=== PATIENT | female | born 1940 | race Caucasian/White ===

== ENCOUNTER 2017-02-12 14:51 | Outpatient (CLI) | payer MEDICARE, OTHER ==
[2017-02-12 19:32] LABS: BASOPHILS # (AUTO) 0.1 10^3/uL (0.0-0.1); BASOPHILS % (AUTO) 1.1 %; EOSINOPHILS # (AUTO) 0.2 10^3/uL (0.0-0.7); EOSINOPHILS % (AUTO) 3.3 %; HCT - HEMATOCRIT 39.4 % (37.0-47.0); HGB - HEMOGLOBIN 13.2 g/dL (12.0-16.0); LYMPHOCYTES # (AUTO) 1.7 10^3/uL (1.5-3.5); LYMPHOCYTES % (AUTO) 28.1 %; MEAN CORPUSCULAR HGB CONC 33.6 g/dL (32.0-36.0); MEAN CORPUSCULAR VOLUME 89.4 fL (81.0-99.0); MEAN PLATELET VOLUME 9.2 fL (7.9-10.8); MONOCYTES # (AUTO) 0.5 10^3/uL (0.0-1.0); MONOCYTES % (AUTO) 7.5 %; NEUTROPHILS # (AUTO) 3.7 10^3/uL (1.5-6.6); NUCLEATED RED BLOOD CELLS AUTO 0.1 /100WBC; RED BLOOD COUNT 4.41 10^6/uL (4.20-5.40); RED CELL DISTRIBUTION WIDTH 13.8 % (12.0-15.0); UNCORRECTED WHITE BLOOD COUNT 6.1 x10^3/uL; WHITE BLOOD COUNT 6.1 x10^3/uL (4.8-10.8)
[2017-02-12 19:43] LABS: ALBUMIN/GLOBULIN RATIO 1.7 (1.0-2.2); BUN - BLOOD UREA NITROGEN 19 mg/dL (6-20); CALCIUM 8.7 mg/dL (8.5-10.3); CARBON DIOXIDE - CO2 26 mmol/L (21-32); CHLORIDE 107 mmol/L (101-111); CREATININE 0.8 mg/dL (0.4-1.0); GFR - MDRD 70 (>89); GLUCOSE 146 mg/dL (70-100); LIPASE 25 U/L (22-51); POTASSIUM 4.3 mmol/L (3.5-5.0); SODIUM 140 mmol/L (135-145); TOTAL PROTEIN 6.4 g/dL (6.7-8.2)
== END 2017-02-12 14:52 ==
LOC: LAB.WCP 14:51
PROVIDERS: ATTEND Family Medicine
DX: R10.9 Unspecified abdominal pain (principal)
CPT/HCPCS: 36415; 80053; 83690; 85025; 86140; 87086

== ENCOUNTER 2017-02-19 09:42 | Outpatient (CLI) | payer MEDICARE, OTHER | END 2017-02-19 09:43 | disposition home or self-care (01) | LOC: SC 09:42 | PROVIDERS: ATTEND Internal Medicine Pulmonary Disease | DX: R53.83 Other fatigue (principal); G47.10 Hypersomnia, unspecified | CPT/HCPCS: 99203; G0463; 99212 ==

== ENCOUNTER 2017-03-07 22:29 | Outpatient (CLI) | payer MEDICARE, OTHER | END 2017-03-07 22:30 | disposition home or self-care (01) | LOC: SC 22:29 | PROVIDERS: ATTEND Internal Medicine Pulmonary Disease | DX: G47.61 Periodic limb movement disorder (principal); R53.83 Other fatigue; G47.10 Hypersomnia, unspecified | CPT/HCPCS: 95810 ==

== ENCOUNTER 2017-04-11 13:37 | Outpatient (CLI) | payer MEDICARE, OTHER | END 2017-04-11 13:38 | disposition home or self-care (01) | LOC: SC 13:37 | PROVIDERS: ATTEND Nurse Practitioner Family | DX: G47.61 Periodic limb movement disorder (principal) | CPT/HCPCS: 99214; G0463; 99212 ==

== ENCOUNTER 2017-05-15 08:31 | Outpatient (CLI) | payer MEDICARE, OTHER ==
--- NOTE | 2017-05-16 12:32 | Mammography Report ---
DIGITAL SCREENING MAMMOGRAM: 05/15/2017 CLINICAL INDICATION: A 76-year-old with family history of breast cancer for screening. COMPARISON: 05/2016, 04/2014, 04/2013, 04/2012, 03/2011, 01/2010 TECHNIQUE: Routine CC and MLO projections were obtained of the breasts. FINDINGS: The breasts demonstrate scattered fibroglandular densities bilaterally. Coarse, typically benign calcifications are present. No suspicious masses, clustered microcalcifications, or regions of architectural distortion are identified. IMPRESSION: BENIGN FINDINGS. RECOMMENDATION: Routine annual screening unless otherwise clinically indicated. BIRADS CATEGORY 2 - BENIGN FINDINGS. STANDARD QUALIFYING STATEMENTS 1. This examination was reviewed with the aid of Computer-Aided Detection (CAD). 2. A negative or benign imaging report should not delay biopsy if clinically suspicious findings are present. Consider surgical consultation if warranted. More than 5% of cancers are not identified by i maging. 3. Dense breasts may obscure an underlying neoplasm. JOB #: [id number] EXT JOB #:[id number]
== END 2017-05-15 08:32 | disposition home or self-care (01) ==
LOC: DI 08:31
PROVIDERS: ATTEND Family Medicine
DX: Z12.31 Encounter for screening mammogram for malignant neoplasm of breast (principal); Z80.3 Family history of malignant neoplasm of breast
CPT/HCPCS: 77067

== ENCOUNTER 2017-05-15 08:32 | Outpatient (CLI) | payer MEDICARE, OTHER ==
--- NOTE | 2017-05-16 11:01 | DEXA Report ---
DEXA SCAN: 05/15/2017 CLINICAL INDICATION: Osteoporosis. TECHNIQUE: Dual energy x-ray absorptiometry (DXA) was performed on a [employer] system. Regions measured are the AP spine, femoral neck, and, if needed, forearm. COMPARISON: None. In accordance with the International Society for Clinical Densitometry (ISCD) guidelines, data from previous exams may be reanalyzed using current recommendations and techniques. This is done to allow a more accurate basis for comparison with the current study. FINDINGS: The data for the lumbar spine is as follows: REGION BMD (g/cm/cm) T-SCORE Z-SCORE L1 0.810 -2.7 -1.3 L2 1.039 -1.3 0.0 L3 1.182 -0.2 1.2 L4 1.246 0.4 1.7 TOTAL 1.071 -0.9 0.4 NOTE: All evaluable vertebrae are used for classification. The data for the hip is as follows: REGION BMD (g/cm/cm) T-SCORE Z-SCORE Neck 0.663 -2.7 -1.0 TOTAL 0.849 -1.3 0.2 NOTE: The femoral neck or total proximal femur, whichever is lowest, is used for classification. IMPRESSION: THE WHO CLASSIFICATION BASED ON THE INTERNATIONAL REFERENCE STANDARD IS OSTEOPOROSIS (REFERENCE LEFT FEMORAL NECK). THE FRACTURE RISK IS HIGH. RECOMMENDATION: Patients with diagnosis of osteoporosis or osteopenia should have regular bone mineral density assessment. For those eligible for Medicare, routine testing is allowed once every 2 years. Testing frequency can be increased for patients who have rapidly progressing disease or for those who are receiving medical therapy to restore bone mass. COMMENT: World Health Organization (WHO) definitions for osteoporosis and osteopenia: NORMAL BMD: T-score at -1.0 or higher, fracture risk is low. OSTEOPENIA BMD: T-score between -1.0 and -2.5, fracture risk is increased. OSTEOPOROSIS BMD: T-score at -2.5 or lower, fracture risk high. National Osteoporosis Foundation recommends: 1. Obtain adequate dietary calcium (at least 1200 mg per day) and vitamin D (400 -800 international units per day). 2. Participate, as appropriate, in regular weightbearing and muscle- strengthening exercise. 3. Avoid tobacco use and reduce alcohol and caffeine intake. 4. For more detailed information see the website at www.NOF.org. MTDD
== END 2017-05-15 08:33 | disposition home or self-care (01) ==
LOC: DI 08:32
PROVIDERS: ATTEND Family Medicine
DX: M81.0 Age-related osteoporosis without current pathological fracture (principal)
CPT/HCPCS: 77080

== ENCOUNTER 2017-08-29 11:34 | Outpatient (CLI) | payer MEDICARE, OTHER ==
--- NOTE | 2017-08-30 13:44 | XRAY Report ---
DATE OF SERVICE: 08/29/2017 LEFT HIP AND PELVIS: 08/29/2017 CLINICAL INDICATION: Arthritis. Frontal standing view of the hips and pelvis and frogleg lateral view of the left hip are compared to previous films of 02/23/2016. Mild osteoarthritis is stable. There is no evidence of interval fracture. Hood gical clips at the pubic symphysis are stable. IMPRESSION: Stable mild osteoarthritis. TD: 08/29/2017 18:31
== END 2017-08-29 11:35 | disposition home or self-care (01) ==
LOC: DI 11:34
PROVIDERS: ATTEND Family Medicine
DX: M16.12 Unilateral primary osteoarthritis, left hip (principal)

== ENCOUNTER 2017-09-06 16:22 | Outpatient (CLI) | payer MEDICARE, OTHER ==
--- NOTE | 2017-09-06 18:11 | MRI Preliminary Report ---
Exam: MRI SHOULDER LT W/O IMPRESSION: 1. Mild supraspinatus tendinopathy with shallow partial-thickness intrasubstance and articular surfac e tear and shallow bursal surface fraying. 2. Minimal infraspinatus tendinopathy. 3. Mild subscapularis tendinopathy with small partial-thickness undersurface tear. 4. Degenerative maceration of the labrum. 5. Moderate biceps tendinopathy and possible intrasubstance tearing of the intrajugular portion. 6. Severe glenohumeral degenerative change.. [facility] MUSCULOSKELETAL RADIOLOGY SECTION SITE ID: [id number]
--- NOTE | 2017-09-09 15:47 | MRI Report ---
EXAM: LEFT SHOULDER MRI WITHOUT CONTRAST EXAM DATE: 09/06/2017 04:21 PM. CLINICAL HISTORY: Shoulder pain, left. COMPARISON: Radiographs 05/28/2017. TECHNIQUE: Multiplanar, multisequence T1-weighted and fluid-sensitive sequences of the shoulder witho ut contrast. Other: None. FINDINGS: Evaluation mildly limited by patient motion and artifact. Acromioclavicular Region: The acromion is type II. Mild degenerative change at the joint with minimal joint effusion. The coracoacromial and coracoclavicular ligaments are intact. Minimal subacromial/crow bdeltoid bursal fluid. Glenohumeral Region: Minimal superior subluxation of the humeral head. Small to moderate joint effusi on with lobulated fluid extending into the subcoracoid region. Diffuse full-thickness cartilage loss and mild mechanical wear at the articular surfaces. The glenohumeral ligaments and joint capsule are unremarkable. Bone Marrow: No fracture or bone lesion. Reactive cysts at the greater tuberosity. Mild to moderate r eactive edema at the glenohumeral joint where there are small to moderate osteophytes. Labrum: Degenerative maceration throughout. Small partial-thickness undersurface tear deep to the bic eps tendon anchor. Musculature/Rotator Cuff: Mild supraspinatus tendinopathy. Small shallow partial-thickness intrasubst ance and articular surface tear at the anterior fibers involving a region measuring 0.9 cm in AP and transverse dimensions. This involves up to 50% of the tendon thickness. Shallow bursal surface frayin g over the anterior fibers at the myotendinous junction. Minimal infraspinatus tendinopathy with a small partial-thickness intrasubstance tear at the posterio r insertion. Teres minor tendon is intact. Mild subscapularis tendinopathy with a shallow partial-thickness undersurface tear at the superior fi bers. No edema or fatty atrophy. Biceps Tendon: Moderate thickening at the interarticular portion with fluid sensitive hyperintense si gnal in the substance. Other: The subcutaneous tissues are unremarkable. IMPRESSION: 1. Mild supraspinatus tendinopathy with a shallow partial-thickness intrasubstance and articular surf kun tear and shallow bursal surface fraying. 2. Minimal infraspinatus tendinopathy. 3. Mild subscapularis tendinopathy with a small partial-thickness undersurface tear. 4. Degenerative maceration of the labrum. 5. Moderate biceps tendinopathy and possible intrasubstance tearing of the intraarticular portion. 6. Severe glenohumeral degenerative change. [facility] MUSCULOSKELET[facility] RADIOLOGY SECTION Referring Provider Line: [phone] SITE ID: [id number]
== END 2017-09-06 16:23 | disposition home or self-care (01) ==
LOC: DI 16:22
PROVIDERS: ATTEND Family Medicine
DX: M75.102 Unspecified rotator cuff tear or rupture of left shoulder, not specified as traumatic (principal); M19.012 Primary osteoarthritis, left shoulder; M67.88 Other specified disorders of synovium and tendon, other site

== ENCOUNTER 2017-10-16 08:00 | Outpatient (CLI) | payer MEDICARE, OTHER | END 2017-10-16 08:01 | disposition home or self-care (01) | LOC: LAB.WCP 08:00 | PROVIDERS: ATTEND Family Medicine | DX: N39.0 Urinary tract infection, site not specified (principal) | CPT/HCPCS: 87086 ==

== ENCOUNTER 2018-04-26 16:19 | Outpatient (CLI) | payer MEDICARE, OTHER ==
--- NOTE | 2018-04-26 21:12 | Ultrasound Report ---
Reason: LEG PAIN Procedure Date: 04/26/2018 Accession Number: [id number] / [id number] Procedure: US - Duplex Ext Veins Right CPT Code: FULL RESULT: EXAM: RIGHT LOWER EXTREMITY VENOUS ULTRASOUND EXAM DATE: 04/26/2018 05:03 PM. CLINICAL HISTORY: Leg pain COMPARISON: None. TECHNIQUE: Real-time sonographic vascular imaging was performed by the senior java web developer through the lower extremity utilizing both color-flow and Doppler spectral analysis. Multiple assisted sales representative static images were saved for review. FINDINGS: Common Femoral Vein (CFV): Normal. CFV-GSV Junction: Normal. Profunda Femoral Vein (PFV): Normal. Femoral Vein (FV) Prox: Normal. Femoral Vein (FV) Mid: Normal. Femoral Vein (FV) Dist: Normal. Popliteal Vein: Normal. Posterior Tibial Veins: Normal. Peroneal Veins: Normal. Contralateral Side CFV: Normal. IMPRESSION: No evidence for deep venous thrombosis. [facility]
== END 2018-04-26 16:20 | disposition home or self-care (01) ==
LOC: DI 16:19
PROVIDERS: ATTEND Family Medicine
DX: M79.604 Pain in right leg (principal)

== ENCOUNTER 2018-06-03 10:19 | Outpatient (CLI) | payer MEDICARE, OTHER ==
--- NOTE | 2018-06-04 14:32 | Mammography Report ---
Reason: SCREEING MAMMO Procedure Date: 06/03/2018 Accession Number: [id number] / [id number] Procedure: MGN - Screening Mammo Dig Bilat CPT Code: FULL RESULT: EXAM: Screening Mammo Dig Bilat DATE: 06/03/2018 10:38 AM CLINICAL HISTORY: 77-year-old female with history of remote breast biopsy with benign pathology results and family history of breast cancer in the daughter at age 48 and an aunt at age 65. TECHNIQUE: Bilateral CC and MLO views were obtained. A left exaggerated view was also obtained. COMPARISON: 05/15/2017, January 2016, 04/15/2014, 04/02/2013. FINDINGS: The breasts demonstrate scattered fibroglandular densities bilaterally. Typically benign coarse calcifications are seen bilaterally. No suspicious masses, clustered microcalcifications, or regions of architectural distortion are identified. IMPRESSION: Benign findings RECOMMENDATION: Routine annual screening unless otherwise clinically indicated. BIRADS CATEGORY 2: Benign findings STANDARD QUALIFYING STATEMENTS: 1. This examination was reviewed with the aid of Computer-Aided Detection (CAD). 2. A negative or benign imaging report should not delay biopsy if clinically suspicious findings are present. Consider surgical consultation if warrented. More than 5% of cancers are not identified by imaging. 3. Dense breasts may obscure an underlying neoplasm. 4. This examination was reviewed without the aid of 3D breast imaging (tomosynthesis).
== END 2018-06-03 10:20 | disposition home or self-care (01) ==
LOC: DI.N 10:19
DX: Z12.31 Encounter for screening mammogram for malignant neoplasm of breast (principal); Z80.3 Family history of malignant neoplasm of breast
CPT/HCPCS: 77067

== ENCOUNTER 2018-08-07 08:24 | Outpatient (CLI) | payer MEDICARE, OTHER | END 2018-08-07 08:25 | disposition home or self-care (01) | LOC: DI 08:24 | PROVIDERS: ATTEND Family Medicine | DX: R06.02 Shortness of breath (principal); I35.8 Other nonrheumatic aortic valve disorders | CPT/HCPCS: 93306 ==

== ENCOUNTER 2018-10-20 08:00 | Outpatient (CLI) | payer MEDICARE, OTHER | END 2018-10-20 23:59 | disposition home or self-care (01) | LOC: LAB.WCP 08:00 | PROVIDERS: ATTEND Family Medicine | DX: R53.83 Other fatigue (principal) | CPT/HCPCS: 87275; 87276 ==

== ENCOUNTER 2018-10-27 12:30 | Outpatient (CLI) | payer MEDICARE, OTHER | END 2018-10-27 12:31 | disposition critical access hospital (66) | LOC: EMS 12:30 | PROVIDERS: ATTEND Surgery | DX: R50.9 Fever, unspecified (principal); R53.1 Weakness | CPT/HCPCS: A0425; A0429 ==

== ENCOUNTER 2018-10-27 12:52 | Emergency (ER) | payer MEDICARE, OTHER ==
--- NOTE | 2018-10-27 13:40 | ED Physician Documentation ---
PD SRIRAM HEENT - Stated complaint Stated Complaint: Fever - Chief complaint Chief Complaint: General - History obtained from History obtained from: Patient - History of Present Illness Timing - onset: How many days ago (has felt worse the past 2-3 days with increased cough, wheezing, nausea and vomiting. Had had malaise and URI symptoms for about 2 weeks prior, onset after flying to visit friend in [place].) Timing - duration: Days, Weeks (2 weeks duration of general malaise, aches, some headache - onset day after getting shingles booster vaccine) Timing - details: Gradual onset, Still present Location: Sinuses Associated symptoms: Fever, Swollen nodes. No: Headache Similar symptoms before: Has not had sx before Recently seen: Not recently seen Review of Systems Constitutional: reports: Fever, Chills, Myalgias Nose: reports: Congestion. denies: Rhinorrhea / runny nose Throat: reports: Sore throat Respiratory: reports: Dyspnea, Cough, Wheezing GI: reports: Nausea. denies: Abdominal Pain, Vomiting, Diarrhea : denies: Dysuria, Frequency Skin: denies: Rash, Lesions Neurologic: reports: Confused, Altered mental status, Headache PD PAST MEDICAL HISTORY - Past Medical History Past Medical History: Yes Cardiovascular: None Respiratory: None Endocrine/Autoimmune: None Musculoskeletal: Osteoarthritis - Past Surgical History Ortho: Knee replacement /FLOUR BROKER: Hysterectomy - Present Medications Home Medications: Ambulatory Orders Medication Instructions Recorded Confirmed Albuterol Sulf [Ventolin Hfa 1 - 2 puffs INH Q4HR PRN #1 inhaler 10/27/18 Inhaler] Benzonatate [Tessalon Perle] 100 mg PO TID PRN #30 capsule 10/27/18 10/29/18 Cephalexin [Keflex] 500 mg PO TID #21 capsule 10/27/18 10/29/18 Dexamethasone [Decadron] 4 mg PO DAILY #5 tablet 10/27/18 10/29/18 Ondansetron Odt [Zofran] 4 mg TL Q6H PRN #10 tablet 10/27/18 10/29/18 Estrogen,Pily/Me-Testosterone 0.5 tab PO Q48H 10/29/18 10/29/18 [Covaryx H.s. Tablet] Levothyroxine [Synthroid] 50 mcg PO QDAC 10/29/18 10/29/18 - Allergies Allergies/Adverse Reactions: Allergies Allergy/AdvReac Type Severity Reaction Status Date / Time No Known Drug Allergies Allergy Verified 10/29/18 10:02 - Social History Does the pt smoke?: No Smoking Status: Never smoker PD ED PE NORMAL - Vitals Vital signs reviewed: Yes - General General: Alert and oriented X 3, Well developed/nourished - HEENT HEENT: Ears normal, Pharynx benign. No: Moist mucous membranes - Neck Neck: Supple, no meningeal sign, No adenopathy - Cardiac Cardiac: RRR, No murmur - Respiratory Respiratory: No: Clear bilaterally (some congested sounds right mid lung field. Has diffuse wheezing and moderate tidal volume both sides. ) - Abdomen Abdomen: Soft, Non tender, Non distended. No: Normal bowel sounds (diminished) - Female Female : Deferred - Rectal Rectal: Deferred - Back Back: No CVA TTP - Extremities Extremities: No tenderness to palpate, Normal ROM s pain, No edema, No calf tenderness / cord - Neuro Neuro: Alert and oriented X 3, No motor deficit, Normal speech Results - Vitals Vitals: Oxygen O2 Source Room air - Labs Labs: Microbiology 10/27/18 14:25 Urine Culture - Preliminary Urine,Clean Catch Laboratory Tests 10/27/18 10/27/18 10/27/18 13:30 13:30 13:30 WBC 5.0 RBC 4.64 Hgb 13.8 Hct 40.8 MCV 88.0 MCH 29.9 MCHC 33.9 RDW 13.6 Plt Count 170 MPV 8.1 Neut # (Auto) 3.1 Lymph # (Auto) 1.0 L [place] # (Auto) 0.8 Eos # (Auto) 0.0 Baso # (Auto) 0.0 Absolute Nucleated RBC 0.00 Nucleated RBC % 0.0 Sodium 135 Potassium 4.0 Chloride 100 L Carbon Dioxide 26 Anion Gap 9.0 BUN 16 Creatinine 1.0 Estimated GFR (MDRD) 54 L Glucose 100 Calcium 8.6 Magnesium 2.0 Total Bilirubin 1.3 H AST 25 ALT 21 Alkaline Phosphatase 65 Total Protein 6.9 Albumin 3.9 Globulin 3.0 Albumin/Globulin Ratio 1.3 Lipase 31 Urine Color Urine Clarity Urine pH Ur Specific [place] Urine Protein Urine Glucose (UA) Urine Ketones Urine Occult Blood Urine Nitrite Urine Bilirubin Urine Urobilinogen Ur Leukocyte Esterase Urine RBC Urine WBC Ur Squamous Epith Cells Urine Bacteria Urine Mucus Ur Microscopic Review Urine Culture Comments Influenza A (Rapid) Influenza B (Rapid) 10/27/18 10/27/18 14:25 14:40 WBC RBC Hgb Hct MCV MCH MCHC RDW Plt Count MPV Neut # (Auto) Lymph # (Auto) [place] # (Auto) Eos # (Auto) Baso # (Auto) Absolute Nucleated RBC Nucleated RBC % Sodium Potassium Chloride Carbon Dioxide Anion Gap BUN Creatinine Estimated GFR (MDRD) Glucose Calcium Magnesium Total Bilirubin AST ALT Alkaline Phosphatase Total Protein Albumin Globulin Albumin/Globulin Ratio Lipase Urine Color DARK YELLOW Urine Clarity CLEAR Urine pH 5.5 Ur Specific [place] >=1.030 H Urine Protein 30 H Urine Glucose (UA) NEGATIVE Urine Ketones TRACE Urine Occult Blood LARGE H Urine Nitrite NEGATIVE Urine Bilirubin NEGATIVE Urine Urobilinogen 0.2 (NORMAL) Ur Leukocyte Esterase TRACE H Urine RBC 6-10 H Urine WBC 6-10 H Ur Squamous Epith Cells RARE Squamous Urine Bacteria Rare Urine Mucus Few Strands Ur Microscopic Review INDICATED Urine Culture Comments INDICATED Influenza A (Rapid) Negative Influenza B (Rapid) Negative PD MEDICAL DECISION MAKING - ED course Complexity details: reviewed results (I think incidental UTI, though could be adding to her feeling of unwellness. ), re-evaluated patient (improved breathing and cough post meds and nebs. Given IV fluid and antiemetics with improvement. ), considered differential (She relates symptoms starting after getting shingles vaccine, but she had traveled to [place] by plane, drove to [place] and was there for few days, so had opportunity for viral illness/etc in addition to side effects of vaccine. She had URI type symptoms and then has worse symptoms the past 2-3 days, so either secondary infection or another viral illness. Does seem likely dehydrated. Mild headache but no nuchal stiffness, so I don't feel she has meningitic symptoms. ), d/w patient, d/w family Departure - Departure Disposition: 01 Home, Self Care Clinical Impression: Dehydration Upper respiratory infection Qualifiers: URI type: unspecified URI Qualified Code(s): J06.9 - Acute upper respiratory infection, unspecified UTI (urinary tract infection) Qualifiers: Urinary tract infection type: acute cystitis Hematuria presence: without hematuria Qualified Code(s): N30.00 - Acute cystitis without hematuria Condition: Stable Record reviewed to determine appropriate education?: Yes Instructions: ED Upper Resp Infec Abx Tx, ED UTI Cystitis Female Follow-Up: Adri Mendoza DO [Primary Care Provider] - Prescriptions: Albuterol Sulf [Ventolin Hfa Inhaler] 1 - 2 puffs INH Q4HR PRN #1 inhaler PRN Reason: Shortness Of Air/Wheezing Benzonatate [Tessalon Perle] 100 mg PO TID PRN #30 capsule PRN Reason: Cough Cephalexin [Keflex] 500 mg PO TID #21 capsule Dexamethasone [Decadron] 4 mg PO DAILY #5 tablet Ondansetron Odt [Zofran] 4 mg TL Q6H PRN #10 tablet PRN Reason: Nausea / Vomiting Comments: On testing you do have a urinary tract infection. I think this is unrelated to your cough and congestion of course. It might be augmenting your general feeling of illness and nausea. However much of your symptoms sound flulike with the congestion cough, nausea and vomiting. Will have you take ondansetron if needed for nausea. Decadron anti-inflammatory to help with nausea and also with cough. Cough medicine if needed (Tessalon). Albuterol inhaler 4 times daily for cough and wheezing. Take the cephalexin antibiotic 3 times a day for the bladder infection and can help if this is some element bacterial bronchitis. Recheck if not improved over the next couple of days. Discharge Date/Time: 10/27/18 18:02
[2018-10-27 13:46] LABS: BASOPHILS % (AUTO) 0.6 %; EOSINOPHILS % (AUTO) 0.1 %; HGB - HEMOGLOBIN 13.8 g/dL (12.0-16.0); LYMPHOCYTES % (AUTO) 21.1 %; MEAN CORPUSCULAR HEMOGLOBIN 29.9 pg (27.0-31.0); MEAN CORPUSCULAR HGB CONC 33.9 g/dL (32.0-36.0); MEAN PLATELET VOLUME 8.1 fL (7.9-10.8); MONOCYTES # (AUTO) 0.8 10^3/uL (0.0-1.0); MONOCYTES % (AUTO) 15.3 %; NEUTROPHILS # (AUTO) 3.1 10^3/uL (1.5-6.6); NEUTROPHILS % (AUTO) 62.9 %; PLT - PLATELET COUNT 170 10^3/uL (130-450); RED BLOOD COUNT 4.64 10^6/uL (4.20-5.40); RED CELL DISTRIBUTION WIDTH 13.6 % (12.0-15.0)
[2018-10-27 14:02] LABS: ALBUMIN 3.9 g/dL (3.2-5.5); ALBUMIN/GLOBULIN RATIO 1.3 (1.0-2.2); BILIRUBIN,TOTAL 1.3 mg/dL (0.2-1.0); CALCIUM 8.6 mg/dL (8.5-10.3); TOTAL PROTEIN 6.9 g/dL (6.7-8.2)
[2018-10-27] MEDS ORDERED: ONDANSETRON 4 MG/2 ML VIAL IVP STA (14:16)
[2018-10-27] MEDS ORDERED: ALBUTEROL NEB 2.5 MG/3 ML INH STA (14:16)
[2018-10-27] MEDS ORDERED: SODIUM CHLORIDE 0.9% 1,000 ML IV ONE ×2 (14:16→14:18)
[2018-10-27] MEDS ORDERED: FAMOTIDINE 20 MG/2 ML VIAL IVP STA (14:17)
[2018-10-27] MEDS ORDERED: MECLIZINE 12.5 MG TABLET PO STA (14:17)
[2018-10-27 14:44] LABS: BILIRUBIN,URINE NEGATIVE (NEGATIVE); GLUCOSE, URINE (UA) NEGATIVE (NEGATIVE); KETONES,URINE (UA) TRACE mg/dL (NEGATIVE); LEUKOCYTE ESTERASE, URINE TRACE (NEGATIVE); NITRITE,URINE NEGATIVE (NEGATIVE); OCCULT BLOOD,URINE LARGE (NEGATIVE); PH,URINE 5.5 PH (5.0-7.5); PROTEIN,URINE 30 mg/dL (NEGATIVE); UROBILINOGEN,URINE 0.2 (NORMAL) E.U./dL (NORMAL)
[2018-10-27 14:45] LABS: CLARITY,URINE CLEAR (CLEAR)
[2018-10-27 14:59] LABS: BACTERIA,URINE Rare /HPF (None Seen); MUCUS,URINE Few Strands; SQUAMOUS EPITHELIAL CELL,UR RARE Squamous (<= Few)
--- NOTE | 2018-10-27 15:27 | XRAY Report ---
Reason: cough and dyspnea Procedure Date: 10/27/2018 Accession Number: [id number] / [id number] Procedure: XR - Chest 2 View X-Ray CPT Code: 63712 FULL RESULT: EXAM: CHEST RADIOGRAPHY EXAM DATE: 10/27/2018 02:55 PM. CLINICAL HISTORY: Cough and dyspnea. COMPARISON: CHEST 2 VIEW PA/LAT 07/16/2018 9:00 AM. TECHNIQUE: 2 views. FINDINGS: Lungs/Pleura: Mild diffuse interstitial prominence similar to previous exam. No definite acute infiltrate, consolidation, effusion, or pneumothorax. Mediastinum: Heart and mediastinal contours are unremarkable. Upper lobe vessels not distended. Other: Scoliosis, degenerative changes. IMPRESSION: Chronic findings. No acute disease. [facility]
[2018-10-27] MEDS ORDERED: cefTRIAXone 1 GM VIAL IVP STA (15:40)
[2018-10-27] MEDS ORDERED: IPRATROPIUM/ALBUTEROL 3 ML NEB INH STA (16:02)
[2018-10-27] MEDS ORDERED: BENZONATATE 100 MG CAPSULE PO STA (16:03)
[2018-10-27 16:19] VITALS: BP 135/96
== END 2018-10-27 18:02 | disposition home or self-care (01) ==
LOC: ED 12:52
DX: J06.9 Acute upper respiratory infection, unspecified (principal); E86.0 Dehydration; R11.2 Nausea with vomiting, unspecified; N30.00 Acute cystitis without hematuria
CPT/HCPCS: 36415; 71046; 80053; 81001; 83690; 83735; 85025; 87077; 87086; 87181; 87275; 87276; 94640; 96361; 96374; 96375; 99283; 99284; A9270; 81003

== ENCOUNTER 2018-10-29 09:27 | Outpatient (CLI) | payer MEDICARE, OTHER | END 2018-10-29 09:28 | disposition critical access hospital (66) | LOC: EMS 09:27 | PROVIDERS: ATTEND Surgery | DX: R55 Syncope and collapse (principal) | CPT/HCPCS: A0425; A0427 ==

== ENCOUNTER 2018-10-29 09:49 | Inpatient (IN) | payer MEDICARE, OTHER ==
[2018-10-29] MEDS ORDERED: SODIUM CHLORIDE 0.9% 1,000 ML IV ONE ×2 (10:32→13:10)
[2018-10-29 10:57] LABS: BASOPHILS % (AUTO) 0.8 %; EOSINOPHILS % (AUTO) 0.2 %; HGB - HEMOGLOBIN 13.6 g/dL (12.0-16.0); LYMPHOCYTES # (AUTO) 1.2 10^3/uL (1.5-3.5); LYMPHOCYTES % (AUTO) 25.8 %; MEAN CORPUSCULAR HEMOGLOBIN 29.8 pg (27.0-31.0); MEAN CORPUSCULAR VOLUME 87.8 fL (81.0-99.0); MEAN PLATELET VOLUME 8.4 fL (7.9-10.8); MONOCYTES # (AUTO) 0.5 10^3/uL (0.0-1.0); MONOCYTES % (AUTO) 10.8 %; NEUTROPHILS % (AUTO) 62.4 %; PLT - PLATELET COUNT 173 10^3/uL (130-450); RED BLOOD COUNT 4.56 10^6/uL (4.20-5.40); RED CELL DISTRIBUTION WIDTH 13.7 % (12.0-15.0); WHITE BLOOD COUNT 4.8 x10^3/uL (4.8-10.8)
--- NOTE | 2018-10-29 11:03 | ED Physician Documentation ---
PD HPI SYNCOPE - Stated complaint Stated Complaint: NEAR SYNCOPE - Chief complaint Chief Complaint: General - History obtained from History obtained from: Patient - History of Present Illness Witnessed: Witnessed Timing - onset: Today Duration: Seconds Preceding symptoms: Vision changes, Light headed Associated symptoms: No: Seizure, Incontinant of urine, Incontinant of stool, Headache Contributing factors: Other (recent illness) Treatment SPA CONSULTANT: Fluids Similar symptoms before: Has not had sx before Recently seen: Clinic, Emergency Dept - Additional information Additional information: 78-year-old female reports that 2 weeks ago she got a shingles vaccine and felt feverish following that and she had some swelling in her arm that has now resolved and she is developed some dizziness following this. She is going to see her primary care doctor about this and was going in for a follow-up on her dizziness today when she had a syncopal episode in a chair. She was seen here in the emergency department 2 days ago placed on some antibiotic for a urinary tract infection. Review of Systems Constitutional: reports: Fever, Chills, Myalgias, Fatigue Eyes: denies: Decreased vision Ears: denies: Ear pain Nose: reports: Congestion. denies: Rhinorrhea / runny nose Throat: denies: Sore throat Cardiac: denies: Chest pain / pressure, Palpitations Respiratory: reports: Cough. denies: Dyspnea GI: denies: Abdominal Pain, Nausea, Vomiting : denies: Dysuria, Frequency Skin: denies: Rash Musculoskeletal: denies: Neck pain, Back pain, Extremity pain Neurologic: reports: Syncope. denies: Generalized weakness, Focal weakness, Numbness, Seizure, Confused, Altered mental status PD PAST MEDICAL HISTORY - Past Medical History Cardiovascular: None Respiratory: None Endocrine/Autoimmune: None Musculoskeletal: Osteoarthritis - Past Surgical History Ortho: Knee replacement /ENGINEERING INTERN: Hysterectomy - Present Medications Home Medications: Ambulatory Orders Medication Instructions Recorded Confirmed Albuterol Sulf [Ventolin Hfa 1 - 2 puffs INH Q4HR PRN #1 inhaler 10/27/18 Inhaler] Benzonatate [Tessalon Perle] 100 mg PO TID PRN #30 capsule 10/27/18 Cephalexin [Keflex] 500 mg PO TID #21 capsule 10/27/18 Dexamethasone [Decadron] 4 mg PO DAILY #5 tablet 10/27/18 Ondansetron Odt [Zofran] 4 mg TL Q6H PRN #10 tablet 10/27/18 Estrogen,Pily/Me-Testosterone 1 each PO DAILY 10/29/18 [Covaryx H.s. Tablet] Levothyroxine [Synthroid] 50 mcg PO QDAC 10/29/18 Oxybutynin Chloride 5 mg PO DAILY 10/29/18 - Allergies Allergies/Adverse Reactions: Allergies Allergy/AdvReac Type Severity Reaction Status Date / Time No Known Drug Allergies Allergy Verified 10/29/18 10:02 - Social History Does the pt smoke?: No Smoking Status: Never smoker PD ED PE NORMAL - Vitals Vital signs reviewed: Yes (normal ) - General General: Alert and oriented X 3, No acute distress, Well developed/nourished - HEENT HEENT: Atraumatic, PERRL, EOMI, Ears normal, Other (dry mucous membranes. 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, No motor deficit, No sensory deficit, Normal speech Eye Opening: Spontaneous Motor: Obeys Commands Verbal: Oriented GCS Score: 15 - Psych Psych: Normal mood, Normal affect Results - Vitals Vitals: Vital Signs - 24 hr 10/29/18 10/29/18 10/29/18 09:52 12:07 14:00 Temperature 36.1 C L Heart Rate 68 59 L 57 L Respiratory 19 18 15 Rate Blood Pressure 126/59 L 144/78 H 145/69 H O2 Saturation 96 99 97 Oxygen O2 Source Room air - EKG (time done) 0958 Rate: Rate (enter#) (56) Rhythm: NSR QRS: LVH Compare to prior EKG: Old EKG unavailable Computer interpretation: Agree with computer - Labs Labs: Laboratory Tests 10/29/18 10/29/18 10/29/18 10:50 10:50 10:50 WBC 4.8 RBC 4.56 Hgb 13.6 Hct 40.0 MCV 87.8 MCH 29.8 MCHC 34.0 RDW 13.7 Plt Count 173 MPV 8.4 Neut # (Auto) 3.0 Lymph # (Auto) 1.2 L [place] # (Auto) 0.5 Eos # (Auto) 0.0 Baso # (Auto) 0.0 Absolute Nucleated RBC 0.00 Nucleated RBC % 0.0 Sodium 135 Potassium 4.0 Chloride 102 Carbon Dioxide 24 Anion Gap 9.0 BUN 20 Creatinine 0.9 Estimated GFR (MDRD) 61 L Glucose 98 Lactic Acid Calcium 8.4 L Total Bilirubin 1.0 AST 35 ALT 26 Alkaline Phosphatase 60 Troponin I < 0.04 Total Protein 6.7 Albumin 3.7 Globulin 3.0 Albumin/Globulin Ratio 1.2 Lipase 40 Urine Color Urine Clarity Urine pH Ur Specific [place] Urine Protein Urine Glucose (UA) Urine Ketones Urine Occult Blood Urine Nitrite Urine Bilirubin Urine Urobilinogen Ur Leukocyte Esterase Urine RBC Urine WBC Ur Squamous Epith Cells Urine Bacteria Ur Microscopic Review Urine Culture Comments 10/29/18 10/29/18 10:50 12:05 WBC RBC Hgb Hct MCV MCH MCHC RDW Plt Count MPV Neut # (Auto) Lymph # (Auto) [place] # (Auto) Eos # (Auto) Baso # (Auto) Absolute Nucleated RBC Nucleated RBC % Sodium Potassium Chloride Carbon Dioxide Anion Gap BUN Creatinine Estimated GFR (MDRD) Glucose Lactic Acid 0.7 Calcium Total Bilirubin AST ALT Alkaline Phosphatase Troponin I Total Protein Albumin Globulin Albumin/Globulin Ratio Lipase Urine Color YELLOW Urine Clarity CLEAR Urine pH 6.0 Ur Specific [place] 1.015 Urine Protein NEGATIVE Urine Glucose (UA) NEGATIVE Urine Ketones NEGATIVE Urine Occult Blood MODERATE H Urine Nitrite NEGATIVE Urine Bilirubin NEGATIVE Urine Urobilinogen 0.2 (NORMAL) Ur Leukocyte Esterase NEGATIVE Urine RBC 0-5 Urine WBC 0-3 Ur Squamous Epith Cells RARE Squamous Urine Bacteria None Seen Ur Microscopic Review INDICATED Urine Culture Comments NOT INDICATED - Rads (name of study) Chest 1 veiw Radiology: Prelim report reviewed (Impression: Left lower lung opacities, new finding.), EMP read indepedently, See rad report Procedures - IVC sono (time) 1100 Bedside IVC sono: IVC measures (cm) (0.97), IVC collapsed c insp (cm) (complete), Dehydration (est 2 liter deficit) 1330 Bedside IVC sono: IVC measures (cm) (1.20), IVC collapsed c insp (cm) (complete), Dehydration (est 1 liter deficit) PD MEDICAL DECISION MAKING - ED course Complexity details: reviewed old records, reviewed results, re-evaluated p atdanilo, considered differential, d/w patient ED course: 78-year-old female with a recent URI has developed lightheadedness and is found to be dehydrated. She was hydrated in the emergency department 2 days ago and despite this ought follow-up with her primary care doctor she had a syncopal episode. They found her blood pressure difficult to find and had a difficult time getting IV started. She arrived to the emergency department here with a 2 L deficit and after a liter of fluid she registers a liter deficit. She is administered a second liter of saline. On review of the patient's medications she was on an inhaled steroid for some time that was helping she stopped this and I am concerned about the possibility of [place]'s we have given her another dose of dexamethasone. She was given dexamethasone on her prior visit and she did not fill her prescription for the dexamethasone that was prescribed. She did take her antibiotic. We did repeat her chest x-ray and there is a new finding of a left lower lobe infiltrate. Departure - Departure Disposition: [facility] DC/Xfer Clinical Impression: Dehydration Pneumonia Qualifiers: Pneumonia type: due to unspecified organism Laterality: left Lung location: lower lobe of lung Qualified Code(s): J18.1 - Lobar pneumonia, unspecified organism
[2018-10-29 11:13] LABS: ALBUMIN 3.7 g/dL (3.2-5.5); ALBUMIN/GLOBULIN RATIO 1.2 (1.0-2.2); CALCIUM 8.4 mg/dL (8.5-10.3); CREATININE 0.9 mg/dL (0.4-1.0); TOTAL PROTEIN 6.7 g/dL (6.7-8.2)
[2018-10-29 12:19] LABS: BILIRUBIN,URINE NEGATIVE (NEGATIVE); CLARITY,URINE CLEAR (CLEAR); GLUCOSE, URINE (UA) NEGATIVE (NEGATIVE); KETONES,URINE (UA) NEGATIVE (NEGATIVE); LEUKOCYTE ESTERASE, URINE NEGATIVE (NEGATIVE); NITRITE,URINE NEGATIVE (NEGATIVE); OCCULT BLOOD,URINE MODERATE (NEGATIVE); PROTEIN,URINE NEGATIVE (NEGATIVE); UROBILINOGEN,URINE 0.2 (NORMAL) E.U./dL (NORMAL)
[2018-10-29 12:29] LABS: BACTERIA,URINE None Seen /HPF (None Seen); RBC,URINE 0-5 /HPF (0-5); SQUAMOUS EPITHELIAL CELL,UR RARE Squamous (<= Few)
[2018-10-29] MEDS ORDERED: DEXAMETHASONE 10 MG/ML VIAL IVP STA (13:37)
--- NOTE | 2018-10-29 14:22 | XRAY Report ---
Reason: cough syncope Procedure Date: 10/29/2018 Accession Number: [id number] / [id number] Procedure: XR - Chest 1 View X-Ray CPT Code: 08963 FULL RESULT: EXAM: CHEST RADIOGRAPHY EXAM DATE: 10/29/2018 02:01 PM. CLINICAL HISTORY: Cough, syncope. COMPARISON: Chest 2 views 10/27/2018 2:55 PM. TECHNIQUE: 1 view. FINDINGS: Lungs/Pleura: Interval decrease in lung volumes with new opacities at the left lung base essentially obscuring the cardiomediastinal silhouette. No sizable pleural effusion or pneumothorax. Mediastinum: The silhouette is partially obscured with no significant interval change in visualized portions. The aortic arch is calcified. Other: None. IMPRESSION: Left lower lung opacities, new finding. RADIA
[2018-10-29] MEDS ORDERED: cefTRIAXone 1 GM in SODIUM CHLORIDE 0.9% MINIBAG 100 ML IV STA (14:48)
[2018-10-29] MEDS ORDERED: IPRATROPIUM/ALBUTEROL 3 ML NEB INH STA (14:48)
[2018-10-29] MEDS ORDERED: PROCHLORPERAZINE 10 MG/2 ML VIAL IVP PRN (16:20)
[2018-10-29] MEDS ORDERED: ACETAMINOPHEN 325 MG TABLET PO PRN (16:20)
[2018-10-29] MEDS ORDERED: SODIUM CHLORIDE FLUSH 0.9% 10 ML SYRINGE IVP PRN (16:20)
[2018-10-29] MEDS ORDERED: BENZONATATE 100 MG CAPSULE PO PRN (16:24)
[2018-10-29] MEDS ORDERED: ALBUTEROL NEB 2.5 MG/3 ML INH PRN (16:29)
[2018-10-29] MEDS ORDERED: IPRATROPIUM/ALBUTEROL 3 ML NEB INH SCH (17:00)
[2018-10-29 17:04] LABS: INR 1.2 (0.8-1.2); PT - PROTHROMBIN TIME 13.9 secs (9.9-12.6)
[2018-10-29] MEDS: D5NS W/20 MEQ KCL 1,000 ML IV SCH (17:30)
[2018-10-29] MEDS: SACCHAROMYCES BOULARDII 250 MG CAPSULE PO SCH (17:31)
[2018-10-29] MEDS: SODIUM CHLORIDE FLUSH 0.9% 10 ML SYRINGE IVP SCH (17:34)
[2018-10-29] MEDS: AZITHROMYCIN INJ 500 MG in SODIUM CHLORIDE 0.9% 250 ML IV SCH (17:37)
--- NOTE | 2018-10-29 18:26 | HISTORY & PHYSICAL EXAMINATION ---
DATE OF SERVICE: 10/29/2018 Physician: July Ruth MD HISTORY OF PRESENT ILLNESS: This is a 78-year-old white female with a history of hypothyroidism on Levothyroxine replacement, as well as on estrogen with testosterone and takes oxybutynin. The patient developed fever of 102 and shaking chills about 3 days ago, a cough and came to the emergency room here. She was felt to be dehydrated, received IV fluids, felt to have bronchitis and was sent home with Tessalon Perles, antibiotics, Decadron and an inhaler and also felt to have a UTI. She stated that she did not feel any better; however, she only took the antibiotics, did not start using the steroid. Today, she felt weak, but drove herself to her PCP's office because she had a followup appointment. While she was waiting in the waiting room, she had a syncopal episode in a chair. She could not remember the details of that event. She does know that an ambulance was called. From that moment on, she was awake and remembers things. The reported vital signs at the scene near the time of the event was blood pressure of 94/56 with a heart rate of 46. In the ambulance, she had a first blood pressure of 120/70 with a pulse of 50 and was afebrile. She had ER evaluation showing that she is dehydrated and a chest x-ray now shows a left lower lobe infiltrate. She started to get IV fluids and her blood pressure has improved to 140. She has had a cough with minimal sputum production. She denies any chest pain or dyspnea on exertion. There have been no palpitations or other episodes of syncope. ALLERGIES: NONE. MEDICATIONS 1. Estrogen/testosterone compound p.o. every other day. 2. Keflex 500 mg t.i.d. 3. Tessalon Perles 100 mg t.i.d. p.r.n. cough. 4. Ventolin inhaler p.r.n. wheezing. 5. Synthroid 50 mcg daily. 6. Zofran p.r.n. 7. Decadron, which she did not take, which was to be 4 mg daily. FAMILY HISTORY: No inherited diseases. SOCIAL HISTORY: She is a retired Ph.D. in nursing education and worked for the [employer] and then the [employer], and she still does part-time substitute teaching. She is a nonsmoker, drinks no alcohol, no illicit drug use. REVIEW OF SYSTEMS: A comprehensive review of systems was performed and the pertinent positives are listed, the rest are negative. PHYSICAL EXAMINATION GENERAL: Elderly white female. She is in no distress, supine in bed. VITAL SIGNS: Blood pressure 140/50, heart rate 65, sinus rhythm, afebrile, room air saturation 95%. HEENT: Reveals dry oral mucosa. Good dental hygiene. NECK: Without JVD in a 30-degree upright angle. CHEST: Diminished breath sounds, but no wheezes or rales. HEART: Sounds are distant. BREASTS: Large. ABDOMEN. Obese, nontender, soft. Normal bowel sounds. EXTREMITIES: No clubbing, cyanosis or edema. NEUROLOGIC: Intact. LABORATORIES: Normal electrolytes. BUN is 20, creatinine 0.9, magnesium 2.2. Normal liver tests. Troponin not detectable. Lipase normal. Lactic acid normal at 0.7. White blood count is 4.8, hemoglobin 13.6, platelet count 173. No INR was done. Urinalysis has moderate occult blood and few white blood cells are seen, but no bacteria. DIAGNOSTIC DATA: Chest x-ray: Left lower lobe infiltrate. EKG: Sinus bradycardia and LVH voltage. There is no old EKG available for comparison. She did have an Echo done here approximately 2 months ago as an outpatient to evaluate "shortness of breath" and this showed LVEF of 65-70% with grade 2 diastolic dysfunction, normal RV size and function and PA pressure could not be measured. IMPRESSION/DIAGNOSES 1. Syncope. 2. Dehydration, which was documented in the emergency room by inferior vena cava ultrasound and she has a prerenal ratio of BUN/creatinine of 20. 3. Community-acquired pneumonia, this has blossomed since the chest x-ray that was done with her first ER visit was 2 days ago. 4. Urinary tract infection, which was to be treated with the same Keflex that her upper respiratory infection was dosed for. 5. Hypothyroidism, on medication. PLAN: Admit the patient to a medical/surgical bed on telemetry. Continue with IV fluids at an aggressive rate. Cycle troponins to rule out an CA as the cause of syncope. Obtain sputum culture if she makes it. Blood cultures were already done in the ER. Begin treatment for community-acquired pneumonia using IV ceftriaxone and IV Zithromax, this will be eventually transitioned to p.o. antibiotics, and adjust IV antibiotics for any bacteria identified based on sensitivities. Ceftriaxone should also cover a urinary tract infection. Check orthostatic vital signs starting tomorrow to assess for adequate rehydration. Monitor for tachy or fred dysrhythmias on telemetry. It is concerning is her heart rate was only 46 when she was hypotensive, this suggests either a vasovagal event or that she has poor chronotropy to compensate for a hypotensive event, suggesting she might need a pacemaker. Continue with her Synthroid and check a TSH to assure adequate dose. Monitor her electrolytes and CBC daily. Continue with her oxybutynin as needed. DEEP VENOUS THROMBOSIS PROPHYLAXIS: Lovenox. CODE STATUS: FULL CODE. ATTESTATION: The patient is expected to be discharged or transferred to another facility within 96 hours. cc: Adri Mendoza DO TD: 10/29/2018 18:03 MTDD
[2018-10-29] MEDS ORDERED: OXYBUTYNIN 5MG TABLET PO PRN (18:36)
[2018-10-29] MEDS: FAMOTIDINE 20 MG TABLET PO SCH (21:04)
[2018-10-29] MEDS: methylPREDNISolone SUCCINATE 40 MG/ML VIAL IVP SCH (21:05)
[2018-10-29] MEDS: IPRATROPIUM/ALBUTEROL 3 ML NEB INH SCH (21:16)
[2018-10-30] MEDS: D5NS W/20 MEQ KCL 1,000 ML IV SCH ×4 (02:27→18:19)
[2018-10-30 04:56] LABS: BASOPHILS % (AUTO) 0.3 %; HGB - HEMOGLOBIN 12.8 g/dL (12.0-16.0); LYMPHOCYTES % (AUTO) 39.4 %; MEAN CORPUSCULAR HGB CONC 32.8 g/dL (32.0-36.0); MEAN CORPUSCULAR VOLUME 88.3 fL (81.0-99.0); MEAN PLATELET VOLUME 8.7 fL (7.9-10.8); MONOCYTES % (AUTO) 3.5 %; NEUTROPHILS % (AUTO) 56.8 %; PLT - PLATELET COUNT 159 10^3/uL (130-450); RED BLOOD COUNT 4.42 10^6/uL (4.20-5.40); RED CELL DISTRIBUTION WIDTH 13.4 % (12.0-15.0)
[2018-10-30 05:03] LABS: CALCIUM 7.8 mg/dL (8.5-10.3); CREATININE 0.8 mg/dL (0.4-1.0); MAGNESIUM 2.2 mg/dL (1.7-2.8)
[2018-10-30 05:06] LABS: WHITE BLOOD COUNT 1.8 x10^3/uL (4.8-10.8)
[2018-10-30 05:07] LABS: ABNORMAL LYMPHS % (MANUAL) 0 %
[2018-10-30 05:39] LABS: BAND NEUTROPHILS % (MANUAL) 6 %; DIFFERENTIAL COMMENT MANUAL DIFFERENTIAL; LYMPHOCYTES # (MANUAL) 0.6 10^3/uL (1.5-3.5); LYMPHOCYTES % (MANUAL) 34 %; NEUTROPHILS # (MANUAL) 1.2 10^3/uL (1.5-6.6); NEUTROPHILS % (MANUAL) 58 %; PLATELET ESTIMATE, MANUAL NORMAL (130-450,000) (NORMAL); RBC MORPHOLOGY (MULTIPLE) NORMAL APPEARANCE (NORMAL)
[2018-10-30] MEDS: SODIUM CHLORIDE FLUSH 0.9% 10 ML SYRINGE IVP SCH ×3 (06:52→17:20)
[2018-10-30] MEDS: methylPREDNISolone SUCCINATE 40 MG/ML VIAL IVP SCH ×2 (06:52→14:12)
[2018-10-30] MEDS ORDERED: LEVOTHYROXINE 25 MCG TABLET PO SCH (07:00)
[2018-10-30] MEDS: IPRATROPIUM/ALBUTEROL 3 ML NEB INH SCH (07:18)
[2018-10-30] MEDS: ESTROGEN ESTER PO SCH (08:34)
[2018-10-30] MEDS: FAMOTIDINE 20 MG TABLET PO SCH (08:34)
[2018-10-30] MEDS: POLYETHYLENE GLYCOL 3350 17 GM PACKET PO SCH (08:34)
[2018-10-30] MEDS: TESTOSTERONE PO SCH (08:34)
[2018-10-30] MEDS: SACCHAROMYCES BOULARDII 250 MG CAPSULE PO SCH ×2 (08:34→17:20)
[2018-10-30] MEDS: ENOXAPARIN 30 MG/0.3 ML SYRINGE SUBQ SCH (08:34)
[2018-10-30] MEDS: AZITHROMYCIN INJ 500 MG in SODIUM CHLORIDE 0.9% 250 ML IV SCH (08:36)
--- NOTE | 2018-10-30 09:38 | XRAY Report ---
Reason: F/U infiltrate Procedure Date: 10/30/2018 Accession Number: [id number] / [id number] Procedure: XR - Chest 1 View X-Ray CPT Code: 89659 FULL RESULT: EXAM: CHEST RADIOGRAPHY EXAM DATE: 10/30/2018 09:13 AM. CLINICAL HISTORY: Followup infiltrate. COMPARISON: CHEST 1 VIEW 10/29/2018 1:46 PM. TECHNIQUE: 1 view. FINDINGS: Lungs/Pleura: The previously identified left lower lung opacities are less prominent on today's examination. Given limitations of AP portable single view, linear densities in the retrocardiac region demonstrate the appearance of vessels on today's exam. No sizable pleural effusion or pneumothorax. Mediastinum: Stable cardiomediastinal silhouette with mild calcification of the aortic arch, suggestion of relatively wide vascular pedicle and borderline cardiomegaly. Other: None. IMPRESSION: Interval decrease in prominence of previously seen left lower lung opacities. RADIA
[2018-10-30] MEDS ORDERED: cefTRIAXone 1 GM in SODIUM CHLORIDE 0.9% MINIBAG 100 ML IV SCH (12:00)
--- NOTE | 2018-10-30 14:22 | PROVIDER PROGRESS NOTE ---
Assessment/Plan - Problem List (1) Wheezing Assessment/Plan: RT has advised changes for her: no Duoneb needed, add Robitussin scheduled. Also, will add Mucinex for pulmonary toilet. Since an a.m. dose of iv push Solumedrol may have caused nausea, will stop that, since she does not have known reactive airway disease. (2) CAP (community acquired pneumonia) Assessment/Plan: CXR shows a bit improved infiltrate. Sputum shows GPC and Gram negs. Continue empiric iv antibiotics, but due to a.m. nausea, will stop the Zithromax and therefore the ceftrixone and use Levofloxacin 750 mg iv daily (discussed with our Pharmacist). (3) Leukopenia Assessment/Plan: This suggests bone marrow suppression from a significant infection. Folow CBC daily. (4) Dehydration Assessment/Plan: No hypotension or orthostasis today. Will DC iv fluids after 24 hours of hydration. Follow BMP daily. (5) Bradycardia Assessment/Plan: The HR was able to increase with standing. She will need outpt Holter testing and Cardiology evaluation and management. (6) Syncope Assessment/Plan: The patient reported that she has been having unexplained syncope for 40 years. None have caused trauma. She was even evaluated by [place] MD[place] when she lived [place] for 23 years and they called her problem "The [place] Disease of living in the [place], where syncope is common and possibly caused by the Radon and caulk deposits [place] She will need outpt Cardiology evaluation and management. (7) Urgency of urination Assessment/Plan: Oxybutinin was ordered prn, as at home (8) Hypothyroidism Assessment/Plan: She reports that ythe dose of thyroid pill is twice what she takes at home AND that she was off that for 10 days, as per orders of her PCP, Dr Adri Mendoza, to figure out what was causing the recent increased dizziness. Will adjust her dose down from 50 to 25 mcg daily. - Current Meds Current Meds: Current Medications Generic Name Dose Route Start Last Admin Trade Name Freq PRN Reason Stop Dose Admin Benzonatate 100 mg 10/29/18 16:24 10/30/18 04:31 Tessalon PO 100 mg TID PRN Administration Cough Enoxaparin Sodium 30 mg 10/30/18 09:00 10/30/18 08:34 Lovenox SUBQ Not Given DAILY MERY Famotidine 20 mg 10/29/18 21:00 10/30/18 08:34 Pepcid PO 20 mg DAILY MERY Administration Potassium Chloride/Dextrose/Sod Cl 1,000 mls @ 150 mls/hr 10/29/18 17:00 10/30/18 10:13 IV 10/30/18 15:00 150 mls/hr .Q6H40M MERY Administration Azithromycin 500 mg/ Sodium 250 mls @ 250 mls/hr 10/29/18 18:00 10/30/18 09:36 Chloride IV Infused DAILY MERY Infusion Ceftriaxone Sodium 1 gm/ 100 mls @ 200 mls/hr 10/30/18 12:00 10/30/18 12:26 Sodium Chloride IV Infused DAILY MERY Infusion Levothyroxine Sodium 50 mcg 10/30/18 07:00 10/30/18 06:52 Synthroid PO 50 mcg QDAC MERY Administration Methylprednisolone 40 mg 10/29/18 22:00 10/30/18 14:12 Solu-Medrol (40mg Vial) IVP 10/31/18 23:00 40 mg TID MERY Administration Patient Own Med ( 0.5 each 10/30/18 09:00 10/30/18 08:34 Estrogen,Pily/Me- PO Not Given Testosterone [ Q48H MERY Covaryx H.S. Tablet] ) Polyethylene Glycol 17 gm 10/30/18 09:00 10/30/18 08:34 Miralax PO Not Given DAILY MERY Saccharomyces Boulardii 250 mg 10/29/18 17:00 10/30/18 08:34 Florastor PO 250 mg BIDWM MERY Administration Sodium Chloride 10 ml 10/29/18 17:00 10/30/18 08:35 Normal Saline Flush 0.9% IVP Not Given 0100,0900,1700 MERY - Lab Result Fish Bone Diagrams: 10/30/18 04:25 10/30/18 04:25 - Additional Planning My Orders: My Active Orders 10/29/18 16:20 Activity Orders [RC] Q2HR IO [RC] IOSHIFT Initiate Bowel Care Protocol [RC] .protocol Initiate Line Care Protocol [RC] QSHIFT Initiate Personal Care Protoco [RC] .protocol Oxygen Therapy [RC] Routine Telemetry- [RC] Q4HR Vital Signs [RC] Q4HR Acetaminophen [Tylenol] 650 mg PO Q4HR PRN Prochlorperazine Inj [Compazine Inj] 10 mg IVP Q6HR PRN Sodium Chloride Flush 0.9% [Normal Saline Flush 0.9%] 10 ml IVP PRN PRN Code Status [OTHERS] Routine Condition of Patient [OTHERS] Routine DVT Prophylaxis [OTHERS] Routine 10/29/18 16:24 Benzonatate [Tessalon] 100 mg PO TID PRN 10/29/18 16:29 Albuterol 2.5 mg INH Q4H PRN 10/29/18 16:30 Resp Teach Nebulizer/MDI [RC] .ONCE 10/29/18 17:00 D5ns W/20 Meq KCl 1,000 ml IV 150 mls/hr Saccharomyces Boulardii [Florastor] 250 mg PO BIDWM Sodium Chloride Flush 0.9% [Normal Saline Flush 0.9%] 10 ml IVP 0100,0900,1700 10/29/18 17:57 RT [Nebulizer/MDI Tx.] [RC] .QID/ Q4 PRN 10/29/18 18:00 Azithromycin Inj [Zithromax Inj] 500 mg Sodium Chloride 0.9% [Normal Saline 0. 9%] 250 ml IV DAILY 10/29/18 18:36 Oxybutynin [Ditropan] 5 mg PO BID PRN 10/29/18 21:00 Famotidine [Pepcid] 20 mg PO DAILY 10/29/18 22:00 methylPREDNISolone SUCCINATE [SOLU-Medrol (40MG VIAL)] 40 mg IVP TID 10/30/18 07:00 Levothyroxine [Synthroid] 50 mcg PO QDAC 10/30/18 09:00 Enoxaparin [Lovenox] 30 mg SUBQ DAILY Patient Own Med [Patient Own Medication] 0.5 each PO Q48H Polyethylene Glycol 3350 [Miralax] 17 gm PO DAILY 10/30/18 12:00 cefTRIAXone [Rocephin] 1 gm Sodium Chloride 0.9% Minibag [Normal Saline 0.9% Minibag] 100 ml IV DAILY 10/30/18 14:17 Postural [Vital Signs - Orthostatic] [RC] QSHIFT 10/30/18 21:00 guaiFENesin [Mucinex] 600 mg PO BID 10/30/18 Lunch DIET [Regular Diet] [DIET] 10/31/18 05:00 BMP - BASIC METABOLIC PANEL [CHEM] DAILYLAB CBC - COMP BLD CT W/AUTO DIFF [HEME] DAILYLAB 11/01/18 05:00 BMP - BASIC METABOLIC PANEL [CHEM] DAILYLAB CBC - COMP BLD CT W/AUTO DIFF [HEME] DAILYLAB Subjective - Subjective Patient Reports: Shortness of Breath, Other (Feels better from breathing standpoint, but was wheezing all night. The a.m. iv push medication gave her nausea, no vomiting.) Nursing Reports: Other (Pt still felt dizzy this am) Objective Vital Signs: Vital Signs - 24 hr 10/29/18 10/29/18 10/29/18 15:15 16:00 17:00 Temperature 36.7 C Heart Rate 62 62 Heart Rate [ Brachial] Heart Rate [ 65 Monitoring electrodes] Respiratory 15 16 Rate Blood Pressure 144/62 H Blood Pressure [Right Brachial artery] Blood Pressure 140/52 H [Right Radial artery] O2 Saturation 98 95 10/29/18 10/29/18 10/30/18 20:33 21:16 00:00 Temperature 36.7 C 36.4 C L Heart Rate 51 L Heart Rate [ 58 L Brachial] Heart Rate [ 62 Monitoring electrodes] Respiratory 20 16 16 Rate Blood Pressure Blood Pressure 127/57 L 111/52 L [Right Brachial artery] Blood Pressure [Right Radial artery] O2 Saturation 96 93 10/30/18 10/30/18 10/30/18 00:45 04:24 07:22 Temperature 36.7 C 36.3 C L Heart Rate 62 55 L Heart Rate [ 60 Brachial] Heart Rate [ Monitoring electrodes] Respiratory 20 18 16 Rate Blood Pressure Blood Pressure 148/58 H [Right Brachial artery] Blood Pressure [Right Radial artery] O2 Saturation 96 94 10/30/18 10/30/18 08:04 13:00 Temperature 36.2 C L 36.5 C Heart Rate Heart Rate [ 72 73 Brachial] Heart Rate [ Monitoring electrodes] Respiratory 19 20 Rate Blood Pressure Blood Pressure 132/66 H 128/66 [Right Brachial artery] Blood Pressure [Right Radial artery] O2 Saturation 93 94 Oxygen O2 Source Room air I&O (Last 24 Hrs): Intake and Output Totals x24h 02/10/29/18 10/30/18 23:59 23:59 23:59 Intake Total 3372 2712.5 Output Total 1125 850 Balance 2247 1862.5 General: Alert, Oriented x3 HEENT: Mucous membr. moist/pink Neck: Supple Neuro: Non Focal Cardiovascular: Regular rate, No murmurs Respiratory: Other (Diminished bases R>L. no wheezing) Abdomen: Normal bowel sounds, Soft Extremities: No edema - Results Results: Laboratory Results WBC 1.8 x10^3/uL (4.8-10.8) L* 10/30/18 04:25 RBC 4.42 10^6/uL (4.20-5.40) 10/30/18 04:25 Hgb 12.8 g/dL (12.0-16.0) 10/30/18 04:25 Hct 39.0 % (37.0-47.0) 10/30/18 04:25 MCV 88.3 fL (81.0-99.0) 10/30/18 04:25 MCH 29.0 pg (27.0-31.0) 10/30/18 04:25 MCHC 32.8 g/dL (32.0-36.0) 10/30/18 04:25 RDW 13.4 % (12.0-15.0) 10/30/18 04:25 Plt Count 159 10^3/uL (130-450) 10/30/18 04:25 MPV 8.7 fL (7.9-10.8) 10/30/18 04:25 Neut # (Auto) Not Reportable 10/30/18 04:25 Lymph # (Auto) Not Reportable 10/30/18 04:25 Wilkin # (Auto) Not Reportable 10/30/18 04:25 Eos # (Auto) Not Reportable 10/30/18 04:25 Baso # (Auto) Not Reportable 10/30/18 04:25 Absolute Nucleated RBC Not Reportable 10/30/18 04:25 Total Counted 100 10/30/18 04:25 Band Neuts % (Manual) 6 % (0-10) 10/30/18 04:25 Abnorm Lymph % (Manual) 0 % 10/30/18 04:25 Nucleated RBC % Not Reportable 10/30/18 04:25 Neutrophils # (Manual) 1.2 10^3/uL (1.5-6.6) L 10/30/18 04:25 Lymphocytes # (Manual) 0.6 10^3/uL (1.5-3.5) L 10/30/18 04:25 Monocytes # (Manual) 0.0 10^3/uL (0.0-1.0) 10/30/18 04:25 Eosinophils # (Manual) 0.0 10^3/uL (0-0.7) 10/30/18 04:25 Basophils # (Manual) 0.0 10^3/uL (0-0.1) 10/30/18 04:25 Differential Comment MANUAL DIFFERENTIAL 10/30/18 04:25 Platelet Estimate NORMAL (130-450,000) (NORMAL) 10/30/18 04:25 RBC Morph Micro Appear NORMAL APPEARANCE (NORMAL) 10/30/18 04:25 PT 13.9 secs (9.9-12.6) H 10/29/18 10:50 INR 1.2 (0.8-1.2) 10/29/18 10:50 Sodium 137 mmol/L (135-145) 10/30/18 04:25 Potassium 4.3 mmol/L (3.5-5.0) 10/30/18 04:25 Chloride 108 mmol/L (101-111) 10/30/18 04:25 Carbon Dioxide 20 mmol/L (21-32) L 10/30/18 04:25 Anion Gap 9.0 (6-13) 10/30/18 04:25 BUN 16 mg/dL (6-20) 10/30/18 04:25 Creatinine 0.8 mg/dL (0.4-1.0) 10/30/18 04:25 Estimated GFR (MDRD) 70 (>89) L 10/30/18 04:25 Glucose 291 mg/dL (70-100) H 10/30/18 04:25 Lactic Acid 0.7 mmol/L (0.5-2.2) 10/29/18 10:50 Calcium 7.8 mg/dL (8.5-10.3) L 10/30/18 04:25 Magnesium 2.2 mg/dL (1.7-2.8) 10/30/18 04:25 Total Bilirubin 1.0 mg/dL (0.2-1.0) 10/29/18 10:50 AST 35 IU/L (10-42) 10/29/18 10:50 ALT 26 IU/L (10-60) 10/29/18 10:50 Alkaline Phosphatase 60 IU/L (42-121) 10/29/18 10:50 Troponin I < 0.04 ng/mL (<0.49) 10/29/18 16:49 Total Protein 6.7 g/dL (6.7-8.2) 10/29/18 10:50 Albumin 3.7 g/dL (3.2-5.5) 10/29/18 10:50 Globulin 3.0 g/dL (2.1-4.2) 10/29/18 10:50 Albumin/Globulin Ratio 1.2 (1.0-2.2) 10/29/18 10:50 Lipase 40 U/L (22-51) 10/29/18 10:50 TSH 0.75 uIU/mL (0.34-5.60) 10/30/18 04:25 Urine Color YELLOW 10/29/18 12:05 Urine Clarity CLEAR (CLEAR) 10/29/18 12:05 Urine pH 6.0 PH (5.0-7.5) 10/29/18 12:05 Ur Specific Elliott 1.015 (1.002-1.030) 10/29/18 12:05 Urine Protein NEGATIVE mg/dL (NEGATIVE) 10/29/18 12:05 Urine Glucose (UA) NEGATIVE mg/dL (NEGATIVE) 10/29/18 12:05 Urine Ketones NEGATIVE mg/dL (NEGATIVE) 10/29/18 12:05 Urine Occult Blood MODERATE (NEGATIVE) H 10/29/18 12:05 Urine Nitrite NEGATIVE (NEGATIVE) 10/29/18 12:05 Urine Bilirubin NEGATIVE (NEGATIVE) 10/29/18 12:05 Urine Urobilinogen 0.2 (NORMAL) E.U./dL (NORMAL) 10/29/18 12:05 Ur Leukocyte Esterase NEGATIVE (NEGATIVE) 10/29/18 12:05 Urine RBC 0-5 /HPF (0-5) 10/29/18 12:05 Urine WBC 0-3 /HPF (0-5) 10/29/18 12:05 Ur Squamous Epith Cells RARE Squamous (<= Few) 10/29/18 12:05 Urine Bacteria None Seen /HPF (None Seen) 10/29/18 12:05 Ur Microscopic Review INDICATED 10/29/18 12:05 Urine Culture Comments NOT INDICATED 10/29/18 12:05
[2018-10-30] MEDS: guaiFENesin/CODEINE 5 ML UDC PO SCH ×2 (17:22→18:08)
--- NOTE | 2018-10-30 17:34 | ADVANCE CARE PLANNING NOTE ---
Advance Care Planning - Date/Time Date: 10/30/18 Time: 16:00 - Purpose of encounter Text: To establish her Code wishes and get background history regarding longstanding recurrent syncope. - Parties in attendance Parties in attendance: I spoke to the patient in her room. 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 Since before that time she has had episodes of syncope that occur at any time, always in the standing position. She saw a [facility] doctor here before going to [place], who told her that this was possibly from a virus and had no other explanation. In [place] these events occurred, once when she was presenting on a stage at a podium and she went to see a [place] doctor. This person did various testing (she did not describe what) and came back to see him and the doctor told her that she was presented at a conference for difficult cases and that she fit the criteria for having "the [place] disease", by which she meant frequent syncopal episodes that occurred in people that live near the [facility], somehow related to the fact that the water supply has high radon and high calk content. When she returned back to the [place], her symptoms were somewhat lessened but have now recurred again. She had received a viral vaccine several weeks ago, and following that developed skin redness, night sweats and dizziness, and she needed to come home prematurely from a trip, where this had started. She continued to feel poorly and went to see her PCP. She was taken off all her medicines by her PCP 10 days ago, to determine if any of her medicines might have led to the problem. She has therefore been off her oxybutynin, levothyroxine 25 mcg daily and all other supplements for the past 10 days. Four days ago she developed a URI with fever, had poor p.o. intake, stayed in bed for 2-3 days but went to the ER with persistent symptoms. She was felt to have a viral syndrome as well as a UTI and was documented to be dehydrated. She received IV fluids, was started on Keflex for the UTI and inhalers, steroid p.o. and Tessalon Perles for the cough. She only took the antibiotic. She went back to see her doctor for follow-up where she had a documented low blood pressure and syncope (near-syncope) that led to an ambulance pick-up and admission to the ER and this hospitalization. When she feels good, she can exercise on a treadmill and gets her heart rate only into the 90s-100s.She states that she always "runs a low blood pressure". She has never been sent for neurology evaluation, cardiology evaluation or had a Holter monitor. An echo was ordered and done 3 months ago as an outpatient to evaluate for shortness of breath. This showed normal LV and RV contractility and no pulmonary hypertension. - Objective/Medical story Objective/Medical Story: This is a relatively healthy 78-year-old white female, who is on a small dose of thyroid replacement and oxybutynin. She presented after an episode of syncope in her doctor's office where the blood pressure was documented low at 90/45 and heart rate of only 45-50. She has been suffering for 4 days with a fever, cough, and a chest x-ray revealed a blossoming pneumonia and she is being admitted with community-acquired pneumonia and hypotension causing syncope. The patient is on telemetry, her heart rates have been 45-75. There is an appropriate increase of heart rate when she stands on new postural vital sign checks started today. Of note is that she received a thyroid medication dose today that is 2 times her normal and in fact she has been off her usual thyroid medicine for the past 10 days. This may have helped with a heart rate response to standing. She will need outpatient cardiology evaluation and management for the recurrent syncope events. - Goals of Care Goals of care determinations: Full aggressive medical management planned. She was told she needs outpatient evaluation by a Tail Worker regarding recurrent syncope. - Plan Plan: Continue medical management. Full Code status. This ACP note will be faxed to her PCP because of all the details listed above. - Code Status Code Status: Attempt Resuscitation - Time Spent on Advance Care Planning Time spent on advance care plannin min
--- NOTE | 2018-10-30 18:28 | HISTORY & PHYSICAL EXAMINATION ---
DATE OF SERVICE: 10/29/2018 Physician: July Ruth MD ADDENDUM: The patient reported in the final part of my first visit for H & P with me, that there were recurrent episodes of syncope, but none for quite a long time, and this will be addressed during her admission as well. TD: 10/30/2018 17:55 MTDD
[2018-10-30] MEDS: guaiFENesin 600 MG TABLET PO SCH (20:39)
[2018-10-31] MEDS: SODIUM CHLORIDE FLUSH 0.9% 10 ML SYRINGE IVP SCH ×3 (00:17→17:30)
[2018-10-31] MEDS: guaiFENesin/CODEINE 5 ML UDC PO SCH ×4 (00:17→17:30)
[2018-10-31 05:39] LABS: CALCIUM 8.5 mg/dL (8.5-10.3); CREATININE 0.7 mg/dL (0.4-1.0)
[2018-10-31 05:41] LABS: BASOPHILS % (AUTO) 0.2 %; HGB - HEMOGLOBIN 13.1 g/dL (12.0-16.0); LYMPHOCYTES # (AUTO) 1.4 10^3/uL (1.5-3.5); LYMPHOCYTES % (AUTO) 12.4 %; MEAN CORPUSCULAR HEMOGLOBIN 29.3 pg (27.0-31.0); MEAN CORPUSCULAR HGB CONC 33.4 g/dL (32.0-36.0); MEAN CORPUSCULAR VOLUME 87.9 fL (81.0-99.0); MEAN PLATELET VOLUME 8.9 fL (7.9-10.8); MONOCYTES # (AUTO) 0.6 10^3/uL (0.0-1.0); MONOCYTES % (AUTO) 5.8 %; NEUTROPHILS # (AUTO) 8.9 10^3/uL (1.5-6.6); NEUTROPHILS % (AUTO) 81.6 %; PLT - PLATELET COUNT 180 10^3/uL (130-450); RED BLOOD COUNT 4.47 10^6/uL (4.20-5.40); RED CELL DISTRIBUTION WIDTH 13.8 % (12.0-15.0); WHITE BLOOD COUNT 10.9 x10^3/uL (4.8-10.8)
[2018-10-31] MEDS: LEVOTHYROXINE 25 MCG TABLET PO SCH (06:29)
[2018-10-31] MEDS ORDERED: levoFLOXacin 750 MG/150 ML 750 MG/150 ML BAG IV SCH (08:00)
[2018-10-31] MEDS: SACCHAROMYCES BOULARDII 250 MG CAPSULE PO SCH ×2 (08:13→17:30)
[2018-10-31] MEDS: guaiFENesin 600 MG TABLET PO SCH ×2 (09:19→20:07)
[2018-10-31] MEDS: FAMOTIDINE 20 MG TABLET PO SCH (09:19)
[2018-10-31] MEDS: ENOXAPARIN 30 MG/0.3 ML SYRINGE SUBQ SCH (09:21)
[2018-10-31] MEDS: POLYETHYLENE GLYCOL 3350 17 GM PACKET PO SCH ×2 (09:22→17:30)
--- NOTE | 2018-10-31 12:26 | PROVIDER PROGRESS NOTE ---
Assessment/Plan - Problem List (1) Syncope Assessment/Plan: Her labs again show pre-renal azotemia. Orthostatic VS show no drop, as she had the first day. The HR has been good on telemetry with no severe bradycardias seen. Continue telemetry, but OK to shower off tele. (2) Bradycardia Assessment/Plan: Telemetry has not shown severe fred, like the documented HRs of 45, when she was near-syncopal at her doctor's office. She will need further outpatient Cardiology eval and management. (3) CAP (community acquired pneumonia) Assessment/Plan: Sputum culture is growing several bacteria, and the ID and sensitivities are still pending. Continue empiric iv antibiotic to cover CAP, which was changed yesterday from Zithromax and Ceftriaxone to Levaquin, due to nausea suspected to be from Zithromax. Continue prn inhalers and Mucinex. Will transition to po antibiotics when culture results are available and for several more days of treatment after DCh. A 7 day total course is planned. Possible DCh tomorrow. (4) Asthma Assessment/Plan: Pt told me that she has been seen once by a "Respiratory specialist" in Aug, was skin tested, had no allergies, was started on inhaled steroids, that she herself stopped 2 weeks ago, due to the "possible side effects of meds causing dizziness". Here, her wheezing has improved despite the iv steroids stopped yesterday, since it may have caused a.m. nausea yesterday morning. Continue prn inhalers and Mucinex. (5) Hypothyroidism Assessment/Plan: Pt back on her small thyroid dose of 25 mcg. (6) Urinary urgency Assessment/Plan: Continue her Oxybutinin prn. (7) Leukopenia Assessment/Plan: Resolved. She now has Leukcytosis, appropriate for her infection. - Current Meds Current Meds: Current Medications Generic Name Dose Route Start Last Admin Trade Name Freq PRN Reason Stop Dose Admin Benzonatate 100 mg 10/29/18 16:24 10/30/18 04:31 Tessalon PO 100 mg TID PRN Administration Cough Enoxaparin Sodium 30 mg 10/30/18 09:00 10/31/18 09:21 Lovenox SUBQ Not Given DAILY MERY Famotidine 20 mg 10/29/18 21:00 10/31/18 09:19 Pepcid PO 20 mg DAILY MERY Administration Guaifenesin 600 mg 10/30/18 21:00 10/31/18 09:19 Mucinex PO 600 mg BID MERY Administration Guaifenesin/Codeine Phosphate 5 ml 10/30/18 18:00 10/31/18 12:07 Robitussin Ac PO 10/31/18 23:30 Not Given Q6HR MERY Levofloxacin 750 mg in 150 mls @ 100 mls/hr 10/31/18 08:00 10/31/18 10:39 Levaquin 750 Mg/150 Ml IV Infused Q48H MERY Infusion Levothyroxine Sodium 25 mcg 10/31/18 07:00 10/31/18 06:29 Synthroid PO 25 mcg QDAC MERY Administration Patient Own Med ( 0.5 each 10/30/18 09:00 10/30/18 08:34 Estrogen,Pily/Me- PO Not Given Testosterone [ Q48H MERY Covaryx H.S. Tablet] ) Polyethylene Glycol 17 gm 10/30/18 09:00 10/31/18 09:22 Miralax PO Not Given DAILY MERY Saccharomyces Boulardii 250 mg 10/29/18 17:00 10/31/18 08:13 Florastor PO 250 mg BIDWM MERY Administration Sodium Chloride 10 ml 10/29/18 16:20 10/30/18 18:11 Normal Saline Flush 0.9% IVP 10 ml PRN PRN Administration NEEDED PER PROVIDER ORDERS Sodium Chloride 10 ml 10/29/18 17:00 10/31/18 09:20 Normal Saline Flush 0.9% IVP 10 ml 0100,0900,1700 MERY Administration - Lab Result Fish Bone Diagrams: 10/31/18 04:50 10/31/18 04:50 - Additional Planning My Orders: My Active Orders 10/30/18 14:17 Postural [Vital Signs - Orthostatic] [RC] QSHIFT 10/30/18 18:00 guaiFENesin/CODEINE [Robitussin AC] 5 ml PO Q6HR 10/30/18 21:00 guaiFENesin [Mucinex] 600 mg PO BID 10/31/18 07:00 Levothyroxine [Synthroid] 25 mcg PO QDAC 10/31/18 08:00 levoFLOXacin 750 MG/150 ML [Levaquin 750 mg/150 ml] 750 mg in 150 ml IV Q48H 11/01/18 05:00 BMP - BASIC METABOLIC PANEL [CHEM] DAILYLAB CBC - COMP BLD CT W/AUTO DIFF [HEME] DAILYLAB Subjective - Subjective Patient Reports: Feeling Better, Other (No morning nausea, like yesterday, after some iv bolused morning med) Objective Vital Signs: Vital Signs - 24 hr 10/30/18 10/30/18 10/30/18 13:00 14:37 15:55 Temperature 36.5 C 36.5 C Heart Rate [ 73 Brachial] Heart Rate [ 67 Monitoring electrodes] Heart Rate [ 65 Sitting (After 1 Minute)] Heart Rate [ 74 Standing (After 1 Minute)] Heart Rate [ 69 Supine] Respiratory 20 19 Rate Blood Pressure 128/66 [Right Brachial artery] Blood Pressure 157/64 H [Right Radial artery] Blood Pressure 147/59 H [Sitting (After 1 Minute)] Blood Pressure 134/61 H [Standing ( After 1 Minute) ] Blood Pressure 127/57 L [Supine] O2 Saturation 94 100 10/30/18 10/30/18 10/31/18 20:40 23:46 05:00 Temperature 36.3 C L 36.5 C 36.4 C L Heart Rate [ 58 L Brachial] Heart Rate [ 62 50 L Monitoring electrodes] Heart Rate [ Sitting (After 1 Minute)] Heart Rate [ Standing (After 1 Minute)] Heart Rate [ Supine] Respiratory 18 16 20 Rate Blood Pressure 139/59 H 154/65 H 149/54 H [Right Brachial artery] Blood Pressure [Right Radial artery] Blood Pressure [Sitting (After 1 Minute)] Blood Pressure [Standing ( After 1 Minute) ] Blood Pressure [Supine] O2 Saturation 95 96 10/31/18 09:00 Temperature 36.5 C Heart Rate [ 62 Brachial] Heart Rate [ Monitoring electrodes] Heart Rate [ Sitting (After 1 Minute)] Heart Rate [ Standing (After 1 Minute)] Heart Rate [ Supine] Respiratory 21 Rate Blood Pressure 135/59 H [Right Brachial artery] Blood Pressure [Right Radial artery] Blood Pressure [Sitting (After 1 Minute)] Blood Pressure [Standing ( After 1 Minute) ] Blood Pressure [Supine] O2 Saturation 96 Oxygen O2 Source room I&O (Last 24 Hrs): Intake and Output Totals x24h 10/29/18 10/30/18 10/31/18 23:59 23:59 23:59 Intake Total 3372 4198.5 500 Output Total 1125 1250 650 Balance 2247 2948.5 -150 General: Alert, Oriented x3 HEENT: Mucous membr. moist/pink Neck: Supple Neuro: Non Focal Cardiovascular: Regular rate, No murmurs Respiratory: Other (L base diminished, no rhonchi or wheeing) Abdomen: Normal bowel sounds, Soft Extremities: No edema - Results Results: Laboratory Results WBC 10.9 x10^3/uL (4.8-10.8) H 10/31/18 04:50 RBC 4.47 10^6/uL (4.20-5.40) 10/31/18 04:50 Hgb 13.1 g/dL (12.0-16.0) 10/31/18 04:50 Hct 39.3 % (37.0-47.0) 10/31/18 04:50 MCV 87.9 fL (81.0-99.0) 10/31/18 04:50 MCH 29.3 pg (27.0-31.0) 10/31/18 04:50 MCHC 33.4 g/dL (32.0-36.0) 10/31/18 04:50 RDW 13.8 % (12.0-15.0) 10/31/18 04:50 Plt Count 180 10^3/uL (130-450) 10/31/18 04:50 MPV 8.9 fL (7.9-10.8) 10/31/18 04:50 Neut # (Auto) 8.9 10^3/uL (1.5-6.6) H 10/31/18 04:50 Lymph # (Auto) 1.4 10^3/uL (1.5-3.5) L 10/31/18 04:50 [place] # (Auto) 0.6 10^3/uL (0.0-1.0) 10/31/18 04:50 Eos # (Auto) 0.0 10^3/uL (0.0-0.7) 10/31/18 04:50 Baso # (Auto) 0.0 10^3/uL (0.0-0.1) 10/31/18 04:50 Absolute Nucleated RBC 0.00 x10^3/uL 10/31/18 04:50 Total Counted 100 10/30/18 04:25 Band Neuts % (Manual) 6 % (0-10) 10/30/18 04:25 Abnorm Lymph % (Manual) 0 % 10/30/18 04:25 Nucleated RBC % 0.0 /100WBC 10/31/18 04:50 Neutrophils # (Manual) 1.2 10^3/uL (1.5-6.6) L 10/30/18 04:25 Lymphocytes # (Manual) 0.6 10^3/uL (1.5-3.5) L 10/30/18 04:25 Monocytes # (Manual) 0.0 10^3/uL (0.0-1.0) 10/30/18 04:25 Eosinophils # (Manual) 0.0 10^3/uL (0-0.7) 10/30/18 04:25 Basophils # (Manual) 0.0 10^3/uL (0-0.1) 10/30/18 04:25 Differential Comment MANUAL DIFFERENTIAL 10/30/18 04:25 Platelet Estimate NORMAL (130-450,000) (NORMAL) 10/30/18 04:25 RBC Morph Micro Appear NORMAL APPEARANCE (NORMAL) 10/30/18 04:25 PT 13.9 secs (9.9-12.6) H 10/29/18 10:50 INR 1.2 (0.8-1.2) 10/29/18 10:50 Sodium 141 mmol/L (135-145) 10/31/18 04:50 Potassium 4.8 mmol/L (3.5-5.0) 10/31/18 04:50 Chloride 111 mmol/L (101-111) 10/31/18 04:50 Carbon Dioxide 23 mmol/L (21-32) 10/31/18 04:50 Anion Gap 7.0 (6-13) 10/31/18 04:50 BUN 21 mg/dL (6-20) H 10/31/18 04:50 Creatinine 0.7 mg/dL (0.4-1.0) 10/31/18 04:50 Estimated GFR (MDRD) 81 (>89) L 10/31/18 04:50 Glucose 148 mg/dL (70-100) H 10/31/18 04:50 Lactic Acid 0.7 mmol/L (0.5-2.2) 10/29/18 10:50 Calcium 8.5 mg/dL (8.5-10.3) 10/31/18 04:50 Magnesium 2.2 mg/dL (1.7-2.8) 10/30/18 04:25 Total Bilirubin 1.0 mg/dL (0.2-1.0) 10/29/18 10:50 AST 35 IU/L (10-42) 10/29/18 10:50 ALT 26 IU/L (10-60) 10/29/18 10:50 Alkaline Phosphatase 60 IU/L (42-121) 10/29/18 10:50 Troponin I < 0.04 ng/mL (<0.49) 10/29/18 16:49 Total Protein 6.7 g/dL (6.7-8.2) 10/29/18 10:50 Albumin 3.7 g/dL (3.2-5.5) 10/29/18 10:50 Globulin 3.0 g/dL (2.1-4.2) 10/29/18 10:50 Albumin/Globulin Ratio 1.2 (1.0-2.2) 10/29/18 10:50 Lipase 40 U/L (22-51) 10/29/18 10:50 TSH 0.75 uIU/mL (0.34-5.60) 10/30/18 04:25 Urine Color YELLOW 10/29/18 12:05 Urine Clarity CLEAR (CLEAR) 10/29/18 12:05 Urine pH 6.0 PH (5.0-7.5) 10/29/18 12:05 Ur Specific [place] 1.015 (1.002-1.030) 10/29/18 12:05 Urine Protein NEGATIVE mg/dL (NEGATIVE) 10/29/18 12:05 Urine Glucose (UA) NEGATIVE mg/dL (NEGATIVE) 10/29/18 12:05 Urine Ketones NEGATIVE mg/dL (NEGATIVE) 10/29/18 12:05 Urine Occult Blood MODERATE (NEGATIVE) H 10/29/18 12:05 Urine Nitrite NEGATIVE (NEGATIVE) 10/29/18 12:05 Urine Bilirubin NEGATIVE (NEGATIVE) 10/29/18 12:05 Urine Urobilinogen 0.2 (NORMAL) E.U./dL (NORMAL) 10/29/18 12:05 Ur Leukocyte Esterase NEGATIVE (NEGATIVE) 10/29/18 12:05 Urine RBC 0-5 /HPF (0-5) 10/29/18 12:05 Urine WBC 0-3 /HPF (0-5) 10/29/18 12:05 Ur Squamous Epith Cells RARE Squamous (<= Few) 10/29/18 12:05 Urine Bacteria None Seen /HPF (None Seen) 10/29/18 12:05 Ur Microscopic Review INDICATED 10/29/18 12:05 Urine Culture Comments NOT INDICATED 10/29/18 12:05
[2018-11-01 05:21] LABS: BASOPHILS % (AUTO) 0.2 %; EOSINOPHILS % (AUTO) 0.1 %; HGB - HEMOGLOBIN 13.4 g/dL (12.0-16.0); LYMPHOCYTES % (AUTO) 37.9 %; MEAN CORPUSCULAR HEMOGLOBIN 28.9 pg (27.0-31.0); MEAN CORPUSCULAR HGB CONC 32.8 g/dL (32.0-36.0); MEAN CORPUSCULAR VOLUME 87.9 fL (81.0-99.0); MEAN PLATELET VOLUME 8.9 fL (7.9-10.8); MONOCYTES # (AUTO) 0.8 10^3/uL (0.0-1.0); MONOCYTES % (AUTO) 9.6 %; NEUTROPHILS # (AUTO) 4.2 10^3/uL (1.5-6.6); NEUTROPHILS % (AUTO) 52.2 %; PLT - PLATELET COUNT 173 10^3/uL (130-450); RED BLOOD COUNT 4.65 10^6/uL (4.20-5.40); RED CELL DISTRIBUTION WIDTH 13.5 % (12.0-15.0)
[2018-11-01 05:23] LABS: CALCIUM 8.3 mg/dL (8.5-10.3); CREATININE 0.7 mg/dL (0.4-1.0)
[2018-11-01] MEDS: LEVOTHYROXINE 25 MCG TABLET PO SCH (06:50)
[2018-11-01] MEDS: SODIUM CHLORIDE FLUSH 0.9% 10 ML SYRINGE IVP SCH ×2 (06:51→09:58)
[2018-11-01 08:22] VITALS: BP 110/69
--- NOTE | 2018-11-01 09:00 | Discharge Plan ---
Discharge Plan Disposition: Home, Self Care Condition: Stable Prescriptions: guaiFENesin [Mucinex] 600 mg PO BID #14 tablet Levofloxacin [Levaquin] 750 mg PO DAILY #7 tablet Diet: Regular Activity Restrictions: Activity as Tolerated Shower Restrictions: No Driving Restrictions: Yes (You need clearance from your PCP to resume driving) Instruction Topics: Pneumonia Tx, Dehydration Rehydration Ch, ED Hypotension Orthostatic Additional Instructions or Follow Up instructions: You were admitted with a pneumonia, had wheezing from your asthma and you were very dehydrated, causing a dropping blood pressure and the symptoms of fainting. You are being discharged to finish 7 more days of antibiotic pills, plus prescriptions for your cough. Continue to use your inhaler for wheezing. After the iv rehydration was stopped, your blood tests show that you become easily dehydrated. Therefore, you should purposefully hydrate with fluids such as juices, broths and water. TEDS stockings put on every morning can be used to help decrease the feeling of dizziness when you stand or walk, but take them off before bedtime. Your pulse is also intermittently very low, and this is adding to the dizziness. You should get a referral to a [place] [facility] for full evaluation of recurrent Syncope (fainting). You may NOT drive a car (because of the fainting), until you are cleared to do so by your PCP or a [place] Manager. See your PCP for hospital follow-up in the next 5-7 days. See your Pulmonary/graphic design specialist soon as well. If you have new or worsening symptoms, call your doctor for help or come to the ER. No Smoking: If you smoke, Please STOP! Call for help. Follow-up with: Adri Mendoza DO [Primary Care Provider] -
[2018-11-01] MEDS: ENOXAPARIN 30 MG/0.3 ML SYRINGE SUBQ SCH (09:58)
[2018-11-01] MEDS: TESTOSTERONE PO SCH (09:58)
[2018-11-01] MEDS: SACCHAROMYCES BOULARDII 250 MG CAPSULE PO SCH (09:58)
[2018-11-01] MEDS: ESTROGEN ESTER PO SCH (09:58)
[2018-11-01] MEDS: FAMOTIDINE 20 MG TABLET PO SCH (09:58)
[2018-11-01] MEDS: guaiFENesin 600 MG TABLET PO SCH (09:58)
[2018-11-02] MEDS ORDERED: levoFLOXacin 250 MG TABLET PO SCH (09:00)
--- NOTE | 2018-11-07 03:07 | DISCHARGE SUMMARY ---
Physician: July Ruth MD DATE OF ADMISSION: 10/29/2018 DATE OF DISCHARGE: 11/01/2018 HISTORY OF PRESENT ILLNESS: This is a 78-year-old white female who presented with 3 days of cough, fever and weakness, spent those prior 3 days mostly in bed, weak, taking very little p.o. intake. Had been seen in the ER at the onset of symptoms and was given IV fluids and sent home with Keflex for a UTI and inhalers and oral steroids. She went to her PCP for a followup appointment and at the doctor's office had a near-syncopal episode with a documented blood pressure of 94/46 and heart rate of 46. An ambulance brought her from the PCP's office to the emergency room. The chest x-ray here showed pneumonia, and she was admitted for management of her respiratory status. HOSPITAL COURSE AND DISCHARGE DIAGNOSES 1. Syncope. Patient had documented hypotension at admission and was treated with aggressive IV fluids. Following that, she had orthostatic vital signs checked which were initially abnormal, and she was mildly symptomatic. Later in the hospital course, these normalized. There were no other etiologies found. She had normal troponin values and normal LVEF on Echocardiogram. At mid hospital course, she reported to me that she had frequent syncope over many decades that she "learned to live with." They would cause falls but no major trauma. She never has seen a Rib Knitter or Neurologist for workup of these. Recently, her usual medications were discontinued in order to determine if any of them had been causing the dizziness and syncopal events. However, even without her thyroid medicine and oxybutynin and supplemental [id number] medicines, this current syncopal episode had occurred. 2. Bradycardia. She had a documented heart rate of 45, suggesting chronotropic incompetence; at a time when her blood pressure was so low and she should have been tachycardic. For this reason, she requires Cardiology evaluation. She may need a pacemaker. 3. Dehydration. Patient was clinically dehydrated on presentation. She had over 2 liters positive fluid balance by the time of discharge. 4. Community-acquired pneumonia. Her admission chest x-ray showed a left lower lobe infiltrate. She was put on IV Ceftriaxone and IV Zithromax for management of this as well as Mucinex bid, Robitussin p.r.n., and her cough and sputum production improved quickly. She was discharged on oral antibiotics to complete a course of treatment for the pneumonia. 5. Asthma. Patient reports she was recently seen by a Correctional Cook and diagnosed with asthma, also had skin testing and was told she had no significant allergies. Patient was on nebulizers while here which helped and was advised to re-see her Correctional Cook for further management of the reactive airway disease. 6. Hypothyroidism. Patient had been off her thyroid medication for 10 days prior to this admission, as described above. She was restarted on her usual dose of thyroid medications while here, and a TSH level was done that showed it was within the normal range. LABORATORY DATA AND IMAGING: Reviewed and summarized above. ALLERGIES: NONE. MEDICATIONS AT DISCHARGE 1. Estrogen/testosterone tablet every other day. 2. Levothyroxine 50 mcg daily. 3. Ventolin inhaler b.i.d. 4. Tessalon Perles t.i.d. p.r.n. 5. Mucinex 600 mg p.o. b.i.d. 6. Levaquin 750 mg daily for an additional 7 days. 7. Zofran sublingual p.r.n. 18. Oxybutynin 5 mg b.i.d. p.r.n. CONDITION AT DISCHARGE: Stable. PHYSICAL EXAMINATION VITAL SIGNS: Blood pressure 110-140/70, heart rate 52-60 in sinus rhythm, afebrile, room air saturation 94%. HEENT: Unremarkable. NECK: Without JVD or carotid bruits. CHEST: Clear. Good air movement. No wheezes. HEART SOUNDS: Normal. No murmurs. ABDOMEN: Soft. No organomegaly. EXTREMITIES: No edema. NEUROLOGIC: Grossly intact. CODE STATUS: FULL CODE. FOLLOWUP: She was advised to see her PCP in followup within a week for respiratory followup and to have clearance to resume driving a car since it was restricted at discharge, because of the syncopal event. She was advised to have followup with her Correctional Cook/[employer]visor [employer] as soon as possible as well for further asthma management, and she was advised to see a Rib Knitter for further evaluation of syncope that has been recurrent for decades. TIME REQUIRED TO COMPLETE THIS ENTIRE DISCHARGE, CHART REVIEW, PATIENT EDUCATION, PRESCRIPTION ORDERS, DICTATION: 60 minutes. cc: Adri Mendoza DO TD: 11/06/2018 23:56 KARLY
== END 2018-11-01 12:52 | disposition home or self-care (01) | DRG 553 ==
LOC: EDUNIT# → ED 09:49 → MS3 16:20
PROVIDERS: ADMIT Internal Medicine; ATTEND Internal Medicine
DX: M19.90 Unspecified osteoarthritis, unspecified site (principal); J18.1 Lobar pneumonia, unspecified organism; J18.9 Pneumonia, unspecified organism; R55 Syncope and collapse; R00.1 Bradycardia, unspecified; E86.0 Dehydration; J45.909 Unspecified asthma, uncomplicated; E03.9 Hypothyroidism, unspecified; R39.15 Urgency of urination; R79.89 Other specified abnormal findings of blood chemistry; Z79.2 Long term (current) use of antibiotics; Z79.51 Long term (current) use of inhaled steroids; Z79.52 Long term (current) use of systemic steroids; Z96.659 Presence of unspecified artificial knee joint
CPT/HCPCS: 36415; 71045; 80048; 80053; 81001; 83605; 83690; 83735; 84443; 84484; 85025; 85610; 87040; 87070; 87205; 93005; 94640; 96361; 96365; 96375; 99283; 99284; A9270; 81003; 87086

== ENCOUNTER 2018-11-05 15:52 | Outpatient (CLI) | payer MEDICARE, OTHER ==
[2018-11-05 19:19] LABS: BASOPHILS % (AUTO) 0.7 %; EOSINOPHILS % (AUTO) 4.5 %; HGB - HEMOGLOBIN 13.6 g/dL (12.0-16.0); MEAN CORPUSCULAR HEMOGLOBIN 28.9 pg (27.0-31.0); MEAN CORPUSCULAR HGB CONC 33.1 g/dL (32.0-36.0); MEAN CORPUSCULAR VOLUME 87.2 fL (81.0-99.0); MEAN PLATELET VOLUME 8.6 fL (7.9-10.8); MONOCYTES % (AUTO) 9.3 %; NEUTROPHILS % (AUTO) 55.5 %; PLT - PLATELET COUNT 275 10^3/uL (130-450); RED BLOOD COUNT 4.71 10^6/uL (4.20-5.40); RED CELL DISTRIBUTION WIDTH 13.2 % (12.0-15.0); WHITE BLOOD COUNT 8.5 x10^3/uL (4.8-10.8)
[2018-11-05 19:36] LABS: ABNORMAL LYMPHS % (MANUAL) 0 %
[2018-11-05 19:38] LABS: ALBUMIN 3.5 g/dL (3.2-5.5); ALBUMIN/GLOBULIN RATIO 1.1 (1.0-2.2); BILIRUBIN,TOTAL 1.3 mg/dL (0.2-1.0); CALCIUM 8.8 mg/dL (8.5-10.3); TOTAL PROTEIN 6.6 g/dL (6.7-8.2)
[2018-11-05 19:40] LABS: BILIRUBIN,URINE NEGATIVE (NEGATIVE); GLUCOSE, URINE (UA) NEGATIVE (NEGATIVE); KETONES,URINE (UA) NEGATIVE (NEGATIVE); LEUKOCYTE ESTERASE, URINE NEGATIVE (NEGATIVE); NITRITE,URINE NEGATIVE (NEGATIVE); OCCULT BLOOD,URINE TRACE-LYSE (NEGATIVE); PROTEIN,URINE NEGATIVE (NEGATIVE); UROBILINOGEN,URINE 0.2 (NORMAL) E.U./dL (NORMAL)
[2018-11-05 20:07] LABS: BACTERIA,URINE None Seen /HPF (None Seen); CLARITY,URINE CLEAR (CLEAR); RBC,URINE None Seen /HPF (0-5); SQUAMOUS EPITHELIAL CELL,UR NONE SEEN (<= Few)
[2018-11-05 20:18] LABS: BAND NEUTROPHILS % (MANUAL) 5 %; EOSINOPHILS # (MANUAL) 0.6 10^3/uL (0-0.7); LYMPHOCYTES % (MANUAL) 18 %; MONOCYTES # (MANUAL) 0.8 10^3/uL (0.0-1.0); NEUTROPHILS # (MANUAL) 5.1 10^3/uL (1.5-6.6); NEUTROPHILS % (MANUAL) 55 %
[2018-11-05 20:19] LABS: PLATELET MORPHOLOGY NORMAL APPEARANCE (NORMAL); RBC MORPHOLOGY (MULTIPLE) NORMAL APPEARANCE (NORMAL)
[2018-11-05 20:20] LABS: DIFFERENTIAL COMMENT MANUAL DIFFERENTIAL; PLATELET ESTIMATE, MANUAL NORMAL (130-450,000) (NORMAL)
== END 2018-11-05 23:59 | disposition home or self-care (01) ==
LOC: LAB.WCP 15:52
PROVIDERS: ATTEND Family Medicine
DX: J18.9 Pneumonia, unspecified organism (principal); N39.0 Urinary tract infection, site not specified
CPT/HCPCS: 36415; 80053; 81001; 85025; 87086

== ENCOUNTER 2018-11-18 12:00 | Outpatient (CLI) | payer MEDICARE, OTHER ==
[2018-11-18 19:09] LABS: BILIRUBIN,URINE NEGATIVE (NEGATIVE); GLUCOSE, URINE (UA) NEGATIVE (NEGATIVE); KETONES,URINE (UA) NEGATIVE (NEGATIVE); LEUKOCYTE ESTERASE, URINE NEGATIVE (NEGATIVE); NITRITE,URINE NEGATIVE (NEGATIVE); OCCULT BLOOD,URINE SMALL (NEGATIVE); PROTEIN,URINE NEGATIVE (NEGATIVE); UROBILINOGEN,URINE 0.2 (NORMAL) E.U./dL (NORMAL)
[2018-11-18 19:36] LABS: CLARITY,URINE CLEAR (CLEAR); EPITHELIAL CELLS,UR FEW Renal Tubular /HPF (<= Few); SQUAMOUS EPITHELIAL CELL,UR FEW Squamous (<= Few)
[2018-11-18 19:37] LABS: BACTERIA,URINE Rare /HPF (None Seen)
== END 2018-11-18 12:01 | disposition home or self-care (01) ==
LOC: LAB.WCP 12:00
PROVIDERS: ATTEND Physician Assistant Medical
DX: R35.0 Frequency of micturition (principal); J45.909 Unspecified asthma, uncomplicated
CPT/HCPCS: 36415; 81001; 81599; 82784; 82785; 85651; 86317; 87086

== ENCOUNTER 2019-08-19 09:41 | Outpatient (CLI) | payer MEDICARE, OTHER ==
--- NOTE | 2019-08-19 13:06 | DEXA Report ---
Reason: OSTEOPOROSIS Procedure Date: 08/19/2019 Accession Number: [id number] / [id number] Procedure: DEX - Dexa Spine and/or Hip CPT Code: Final Report FULL RESULT: EXAM: Dexa Spine and/or Hip DATE: 08/19/2019 10:04 AM CLINICAL HISTORY: OSTEOPOROSIS FOLLOW-UP. Prednisone use. Thyroid replacement therapy. TECHNIQUE: Dual energy x-ray absorptiometry (DXA) was performed on a [employer] System. Regions measured are the AP Spine, femoral neck, and if needed forearm. COMPARISON: 05/15/2017. In accordance with the International Society for Clinical Densitometry (ISCD) guidelines, data from previous exams may be reanalyzed using current recommendations and techniques. This is done to allow a more accurate basis for comparison with the current study. FINDINGS: The data for the lumbar spine is as follows: BMD (g/cm/cm) T-SCORE Z-SCORE REGION L1 0.857 -2.3 -0.8 L2 1.098 -0.9 0.6 L3 1.123 -0.6 0.8 L4 1.250 0.4 1.9 TOTAL 1.085 -0.8 0.7 NOTE: All evaluable vertebrae are used for classification The data for the hip is as follows: BMD (g/cm/cm) T-SCORE Z-SCORE REGION Neck 0.706 -2.4 -0.5 TOTAL 0.861 -1.2 0.5 NOTE: The femoral neck or total proximal femur, whichever is lowest, is used for classification. DXA RESULTS SUMMARY: Spine SCAN DATE [age]GE BMD CHANGE VS CHANGE VS PREVIOUS PREVIOUS % [birth year]19[birth year]2019 [age] 1.085 0.014 1.3 05/15/2017 76.6 1[age]071 * Denotes significant change at the 95% confidence level. Denotes dissimilar scan types or analysis methods. DXA RESULTS SUMMARY: Hip SCAN DATE AGE BMD CHANGE VS CHANGE VS PREVIOUS PREVIOUS % [birth year]19[birth year]2019 [age] 0.861 0.012 1.4 05[birth year]15[birth year]2017 76.6 0.849 * Denotes significant change at the 95% confidence level. Denotes dissimilar scan types or analysis methods. IMPRESSION: THE WHO CLASSIFICATION BASED ON THE INTERNATIONAL REFERENCE STANDARD IS OSTEOPENIA. THE FRACTURE RISK IS INCREASED. RECOMMENDATION: Patients with diagnosis of osteoporosis or osteopenia should have regular bone mineral density assessment. For those eligible for Medicare, routine testing is allowed once every 2 years. Testing frequency can be increased for patients who have rapidly progressing disease or for those who are receiving medical therapy to restore bone mass. COMMENT: World Health Organization (WHO) definitions for osteoporosis and osteopenia: NORMAL BMD: T-score at -1.0 or higher, fracture risk is low OSTEOPENIA BMD: T-score between -1.0 and -2.5, fracture risk is increased. OSTEOPOROSIS BMD: T-score at -2.5 or lower, fracture risk is high. National Osteoporosis Foundation recommends: 1. Obtain adequate dietary calcium (at least 1200 mg per day) and vitamin D (400-800 international units per day). 2. Participate, as appropriate, in regular weightbearing and muscle-strengthening exercise. 3. Avoid tobacco use and reduce alcohol and caffeine intake. 4. For more detailed information see the website at www.NOF.org.
== END 2019-08-19 09:42 | disposition home or self-care (01) ==
LOC: DI 09:41
PROVIDERS: ATTEND Family Medicine
DX: M85.89 Other specified disorders of bone density and structure, multiple sites (principal)
CPT/HCPCS: 77080

== ENCOUNTER 2019-08-19 14:16 | Outpatient (CLI) | payer OTHER ==
--- NOTE | 2019-08-19 15:05 | Mammography Report ---
Reason: PT IS NOT FEELING WELL FOR APPT [id number], SHE WANTS Procedure Date: 08/19/2019 Accession Number: [id number] / [id number] Procedure: MGN - Screening Mammo Dig Bilat CPT Code: Final Report FULL RESULT: EXAM: Screening Mammo Dig Bilat DATE: 08/19/2019 2:50 PM CLINICAL HISTORY: Routine screening. Daughter with breast cancer. Prior benign breast biopsy. TECHNIQUE: (B) - Bilateral CC and MLO views were obtained. COMPARISON: 06/03/2018, 05/15/2017, 05/10/2016, 04/15/2014, 04/02/2013, 05/01/2012, 03/09/2011, 02/13/2010 PARENCHYMAL PATTERN: (A) - The breasts demonstrate scattered fibroglandular densities bilaterally. FINDINGS: No significant interval change. There are no new suspicious masses, calcifications, or areas of distortion. Scattered benign-appearing calcifications are stable. IMPRESSION: Negative examination. BI-RADS category 1. RECOMMENDATION: (ANNUAL) - Recommend routine annual screening mammography. BI-RADS CATEGORY: (1) - Negative. STANDARD QUALIFYING STATEMENTS: 1. This examination was not reviewed with the aid of Computer-Aided Detection (CAD). 2. A negative or benign imaging report should not preclude biopsy if clinically suspicious findings are present. 3. Dense breasts may obscure an underlying neoplasm. 4. This examination was reviewed without the aid of 3D breast imaging (tomosynthesis).
== END 2019-08-19 14:17 | disposition home or self-care (01) ==
LOC: DI.N 14:16
DX: Z12.31 Encounter for screening mammogram for malignant neoplasm of breast (principal); Z80.3 Family history of malignant neoplasm of breast
CPT/HCPCS: 77067

== ENCOUNTER → 2020-02-19 | Outpatient (CLI) | payer MEDICARE, OTHER ==
--- NOTE | 2020-02-19 14:54 | XRAY Report ---
Reason: PNEUMOTHORAX Procedure Date: 02/19/2020 Accession Number: [id number] / [id number] Procedure: WCP - Chest 2 View X-Ray CPT Code: 21681 Final Report FULL RESULT: PROCEDURE: Chest 2 View X-Ray INDICATIONS: PNEUMOTHORAX TECHNIQUE: 2 view(s) of the chest. COMPARISON: Plain films of the chest dated FINDINGS: Surgical changes and devices: None. Lungs and pleura: No pleural effusions or pneumothorax. Mild diffuse chronic appearing interstitial pulmonary opacity. Lungs are otherwise clear. Mediastinum: Mediastinal contours are normal. Heart size is normal. Bones and chest wall: No suspicious bony abnormalities. Soft tissues appear unremarkable. IMPRESSION: 1. No acute process. No evidence of pneumothorax. 2. Mild chronic appearing interstitial lung disease. Reviewed by: Erasmo Lugo MD on 02/19/2020 2:52 PM PDT Approved by: Erasmo Lugo MD on 02/19/2020 2:52 PM PDT Station ID: [id number]
== END ==
LOC: DI.WCP 12:46
PROVIDERS: ATTEND Family Medicine
DX: J84.9 Interstitial pulmonary disease, unspecified (principal)
CPT/HCPCS: 71046

== ENCOUNTER 2020-08-16 16:35 | Outpatient (CLI) | payer MEDICARE, OTHER | END 2020-08-16 16:36 | disposition home or self-care (01) | LOC: LAB 16:35 | PROVIDERS: ATTEND Family Medicine | DX: Z20.828 Contact with and (suspected) exposure to other viral communicable diseases (principal) ==

== ENCOUNTER 2020-08-31 08:00 | Outpatient (CLI) | payer MEDICARE, OTHER | END 2020-08-31 08:01 | disposition home or self-care (01) | LOC: LAB.R 08:00 | PROVIDERS: ATTEND Family Medicine | DX: R05 Cough (principal); Z20.828 Contact with and (suspected) exposure to other viral communicable diseases | CPT/HCPCS: 87275; 87276 ==

== ENCOUNTER 2020-08-31 13:02 | Outpatient (CLI) | payer MEDICARE, OTHER ==
--- NOTE | 2020-08-31 13:48 | XRAY Report ---
PROCEDURE: Chest 2 View X-Ray INDICATIONS: asthma exacerbation TECHNIQUE: 2 view(s) of the chest. COMPARISON: 02/19/2020. FINDINGS: Surgical changes and devices: Patient is status post left shoulder arthroplasty. Lungs and pleura: No pleural effusions or pneumothorax. Chronic emphysematous changes are seen. Incr eased interstitial reticular markings also noted. No definite focal infiltrate. Mediastinum: Mildly tortuous thoracic aorta is seen. Heart size is enlarged. Bones and chest wall: No suspicious bony abnormalities. Soft tissues appear unremarkable. Chronic- appearing anterior wedge compression deformity involving mid thoracic spine vertebral body with moder ate kyphosis is seen. IMPRESSION: COPD. Chronically increased interstitial reticular markings suggestive of interstitial koko ng disease. No focal infiltrate, pleural effusion or pneumothorax. Reviewed by: Gamal Carlos MD on 08/31/2020 1:46 PM PST Approved by: Gamal Carlos MD on 08/31/2020 1:46 PM PST Station ID: [id number]
== END 2020-08-31 23:59 | disposition home or self-care (01) ==
LOC: DI.N 13:02
PROVIDERS: ATTEND Family Medicine
DX: J45.901 Unspecified asthma with (acute) exacerbation (principal); R05 Cough; Z20.828 Contact with and (suspected) exposure to other viral communicable diseases
CPT/HCPCS: 71046; 87275; 87276; U0004

== ENCOUNTER 2020-10-31 08:00 | Outpatient (CLI) | payer MEDICARE, OTHER ==
[2020-10-31 12:23] LABS: BASOPHILS # (AUTO) 0.1 10^3/uL (0.0-0.1); BASOPHILS % (AUTO) 0.9 %; EOSINOPHILS # (AUTO) 0.4 10^3/uL (0.0-0.7); EOSINOPHILS % (AUTO) 6.8 %; HGB - HEMOGLOBIN 8.9 g/dL (12.0-16.0); LYMPHOCYTES # (AUTO) 1.9 10^3/uL (1.5-3.5); LYMPHOCYTES % (AUTO) 32.6 %; MEAN CORPUSCULAR HEMOGLOBIN 24.5 pg (27.0-31.0); MEAN CORPUSCULAR HGB CONC 29.7 g/dL (32.0-36.0); MEAN CORPUSCULAR VOLUME 82.6 fL (81.0-99.0); MEAN PLATELET VOLUME 10.2 fL (7.9-10.8); MONOCYTES # (AUTO) 0.5 10^3/uL (0.0-1.0); MONOCYTES % (AUTO) 9.4 %; NEUTROPHILS # (AUTO) 2.9 10^3/uL (1.5-6.6); NEUTROPHILS % (AUTO) 49.8 %; PLT - PLATELET COUNT 265 10^3/uL (130-450); RED BLOOD COUNT 3.63 10^6/uL (4.20-5.40); RED CELL DISTRIBUTION WIDTH 14.3 % (12.0-15.0); WHITE BLOOD COUNT 5.7 x10^3/uL (4.8-10.8)
[2020-10-31 12:49] LABS: ALBUMIN 3.9 g/dL (3.2-5.5); ALBUMIN/GLOBULIN RATIO 1.3 (1.0-2.2); BILIRUBIN,TOTAL 0.7 mg/dL (0.2-1.0); CALCIUM 9.2 mg/dL (8.5-10.3); CREATININE 0.9 mg/dL (0.4-1.0); POTASSIUM 4.3 mmol/L (3.5-5.0); TOTAL PROTEIN 6.9 g/dL (6.7-8.2)
[2020-10-31 12:51] LABS: THYROID STIMULATING HORMONE 3.34 uIU/mL (0.34-5.60)
== END 2020-10-31 23:59 | disposition home or self-care (01) ==
LOC: LAB.WCP 08:00
PROVIDERS: ATTEND Family Medicine
DX: M85.80 Other specified disorders of bone density and structure, unspecified site (principal); E03.9 Hypothyroidism, unspecified
CPT/HCPCS: 36415; 80053; 84443; 85025

== ENCOUNTER 2020-11-01 07:00 | Outpatient (CLI) | payer MEDICARE, OTHER ==
[2020-11-01 19:11] LABS: FECAL OCCULT BLOOD (FIT) NEGATIVE (NEGATIVE)
== END 2020-11-01 23:59 | disposition home or self-care (01) ==
LOC: LAB.R 07:00
PROVIDERS: ATTEND Family Medicine
DX: D64.9 Anemia, unspecified (principal)
CPT/HCPCS: 82274

== ENCOUNTER 2021-01-13 11:50 | Outpatient (CLI) | payer MEDICARE, OTHER ==
[2021-01-13 17:51] LABS: BASOPHILS # (AUTO) 0.1 10^3/uL (0.0-0.1); BASOPHILS % (AUTO) 0.7 %; EOSINOPHILS # (AUTO) 0.2 10^3/uL (0.0-0.7); EOSINOPHILS % (AUTO) 2.3 %; HCT - HEMATOCRIT 45.1 % (37.0-47.0); HGB - HEMOGLOBIN 14.3 g/dL (12.0-16.0); LYMPHOCYTES # (AUTO) 2.3 10^3/uL (1.5-3.5); LYMPHOCYTES % (AUTO) 28.2 %; MEAN CORPUSCULAR HEMOGLOBIN 27.4 pg (27.0-31.0); MEAN CORPUSCULAR HGB CONC 31.7 g/dL (32.0-36.0); MEAN CORPUSCULAR VOLUME 86.6 fL (81.0-99.0); MEAN PLATELET VOLUME 11.3 fL (7.9-10.8); MONOCYTES # (AUTO) 0.7 10^3/uL (0.0-1.0); NEUTROPHILS % (AUTO) 60.4 %; PLT - PLATELET COUNT 232 10^3/uL (130-450); RED BLOOD COUNT 5.21 10^6/uL (4.20-5.40); RED CELL DISTRIBUTION WIDTH 18.7 % (12.0-15.0); WHITE BLOOD COUNT 8.3 x10^3/uL (4.8-10.8)
[2021-01-13 18:14] LABS: ALBUMIN/GLOBULIN RATIO 1.3 (1.0-2.2); CALCIUM 9.1 mg/dL (8.5-10.3); POTASSIUM 4.7 mmol/L (3.5-5.0); TOTAL PROTEIN 7.1 g/dL (6.7-8.2)
[2021-01-13 18:29] LABS: FERRITIN 27.8 ng/mL (11.0-306.8)
== END 2021-01-13 11:51 | disposition home or self-care (01) ==
LOC: LAB.N 11:50
PROVIDERS: ATTEND Family Medicine
DX: D64.9 Anemia, unspecified (principal)
CPT/HCPCS: 36415; 80053; 82607; 82728; 83540; 84466; 85025

== ENCOUNTER 2021-04-01 08:00 | Outpatient (CLI) | payer MEDICARE, OTHER | END 2021-04-01 23:59 | disposition home or self-care (01) | LOC: LAB.N 08:00 | PROVIDERS: ATTEND Family Medicine | DX: R39.9 Unspecified symptoms and signs involving the genitourinary system (principal); R06.02 Shortness of breath; Z20.822 Contact with and (suspected) exposure to COVID-19 | CPT/HCPCS: 87086; 87181; U0004 ==

== ENCOUNTER 2021-04-19 08:00 | Outpatient (CLI) | payer MEDICARE, OTHER ==
[2021-04-19 17:57] LABS: BASOPHILS # (AUTO) 0.1 10^3/uL (0.0-0.1); BASOPHILS % (AUTO) 0.9 %; EOSINOPHILS # (AUTO) 0.2 10^3/uL (0.0-0.7); HGB - HEMOGLOBIN 13.1 g/dL (12.0-16.0); LYMPHOCYTES # (AUTO) 1.8 10^3/uL (1.5-3.5); LYMPHOCYTES % (AUTO) 32.9 %; MEAN CORPUSCULAR HEMOGLOBIN 29.4 pg (27.0-31.0); MEAN CORPUSCULAR HGB CONC 31.2 g/dL (32.0-36.0); MEAN CORPUSCULAR VOLUME 94.2 fL (81.0-99.0); MEAN PLATELET VOLUME 10.6 fL (7.9-10.8); MONOCYTES # (AUTO) 0.5 10^3/uL (0.0-1.0); MONOCYTES % (AUTO) 9.2 %; NEUTROPHILS # (AUTO) 2.9 10^3/uL (1.5-6.6); NEUTROPHILS % (AUTO) 53.8 %; PLT - PLATELET COUNT 231 10^3/uL (130-450); RED BLOOD COUNT 4.46 10^6/uL (4.20-5.40); RED CELL DISTRIBUTION WIDTH 13.9 % (12.0-15.0); WHITE BLOOD COUNT 5.4 x10^3/uL (4.8-10.8)
[2021-04-19 18:08] LABS: ALBUMIN/GLOBULIN RATIO 1.3 (1.0-2.2); BILIRUBIN,TOTAL 1.5 mg/dL (0.2-1.0); CALCIUM 9.1 mg/dL (8.5-10.3); CREATININE 0.7 mg/dL (0.4-1.0); POTASSIUM 4.9 mmol/L (3.5-5.0); TOTAL PROTEIN 7.1 g/dL (6.7-8.2)
== END 2021-04-19 23:59 | disposition home or self-care (01) ==
LOC: LAB.WCP 08:00
PROVIDERS: ATTEND Family Medicine
DX: R10.31 Right lower quadrant pain (principal)
CPT/HCPCS: 36415; 80053; 85025

== ENCOUNTER 2021-05-10 06:53 | Outpatient (CLI) | payer MEDICARE, OTHER ==
[2021-05-10] MEDS ORDERED: IOVERSOL 320 50 ML VIAL ONE (07:15)
[2021-05-10] MEDS ORDERED: IOPAMIDOL-300 100 ML VIAL ONE (07:15)
--- NOTE | 2021-05-10 09:27 | CT Report ---
PROCEDURE: Abdomen/Pelvis W INDICATIONS: RLQ pain CONTRAST: IV CONTRAST: Isovue 300 ml: 100 PO CONTRAST: Optiray 320 ml50 TECHNIQUE: After the administration of oral and intravenous contrast, 5 mm thick sections acquired from the diap hragms to the symphysis. 5 mm thick coronal and sagittal reformats were acquired. For radiation dos e reduction, the following was used: automated exposure control, adjustment of mA and/or kV accordin g to patient size. COMPARISON: 08/06/2016 FINDINGS: Image quality: Excellent. ABDOMEN: Lung bases: Lung bases are clear. Heart size is normal. Solid organs: Liver and spleen are normal in size and enhancement. Right lobe liver cyst, as before . Small left lobe hypodensities are consistent with cysts versus hemangiomata, unchanged. Gallbladder is unremarkable Biliary system is non dilated. Pancreas enhances normally. Chronically minimal dis rafael body and tail of the pancreas, incidentally noted. No adrenal nodules. Kidneys demonstrate himanshu l size and enhancement, without hydronephrosis. Peritoneum and bowel: Bowel loops demonstrate normal wall thickness and caliber. Moderate hiatal her erika. No free fluid or air. Minimal diverticulosis without evidence of diverticulitis. Normal appendix or appendiceal stump. Nodes and vessels: No retroperitoneal or mesenteric adenopathy by size criteria. Aorta and inferior vena cava are normal in size. Miscellaneous: No ventral hernias. PELVIS: Genitourinary: Bladder wall thickness is normal. Miscellaneous: No inguinal hernias or adenopathy. Previous right adnexal cyst has resolved. Uterus is surgically absent. Bones: No suspicious bony lesions. No vertebral body compression fractures. Lumbar degenerative ch chucho. Canal stenosis at L3-L4 and L4-L5. IMPRESSION: 1. Resolution of previous right adnexal cyst. 2. No evidence of acute abdominal process. 3. Incidental note is made of lumbar degenerative change with canal stenosis at L3-L4 and L4-L5. Reviewed by: Chele Guadarrama MD on 05/10/2021 9:25 AM PDT Approved by: Chele Guadarrama MD on 05/10/2021 9:25 AM PDT Station ID: [id number]
[2021-05-10] MEDS ORDERED: IOPAMIDOL-300 100 ML VIAL IVP ONE (13:08)
[2021-05-10] MEDS ORDERED: IOVERSOL 320 50 ML VIAL PO ONE (13:08)
--- NOTE | 2021-05-10 16:09 | CT Report ---
PROCEDURE: Sinuses INDICATIONS: RIGHT LOWER QUAD ABD PAIN, CHRONIC MAXILLARY SINUS TECHNIQUE: Noncontrast 3.0 mm axial images acquired from the frontal sinuses to the mid-sella, with coronal and sagittal reformats. For radiation dose reduction, the following was used: automated exposure control , adjustment of mA and/or kV according to patient size. COMPARISON: None. FINDINGS: Image quality: Excellent. Sinuses: Minimal scattered areas of ethmoid, sphenoid as well as frontal and maxillary sinus mucosal thickening are present. No visualized mucous retention cysts or polyps. No fluid levels. Ostiomeatal Complexes: Ostiomeatal complexes are narrowed but widely patent secondary to margarito bull dl. Miscellaneous: Visualized intra-orbital contents are normal. No margarito bullosa. Mild to moderate le ftward nasal septal deviation. No paradoxical turbinates. IMPRESSION: Minimal scattered mucosal thickening within the sinuses. Reviewed by: Ciara Vega MD on 05/10/2021 4:07 PM PDT Approved by: Ciara Vega MD on 05/10/2021 4:07 PM PDT Station ID: [id number]
== END 2021-05-10 06:54 | disposition home or self-care (01) ==
LOC: DI 06:53
PROVIDERS: ATTEND Family Medicine
DX: J32.0 Chronic maxillary sinusitis (principal); J34.89 Other specified disorders of nose and nasal sinuses; R10.31 Right lower quadrant pain
CPT/HCPCS: 70486; 74177; Q9967

== ENCOUNTER 2021-08-29 12:36 | Outpatient (CLI) | payer MEDICARE, OTHER ==
--- NOTE | 2021-08-30 08:32 | Mammography Report ---
BILATERAL DIGITAL SCREENING MAMMOGRAM 3D/2D: 08/29/2021 CLINICAL: Family history of breast cancer. Routine screening. Comparison is made to exams dated: 08/19/2019 mammogram, 06/03/2018 mammogram, and 05/15/2017 mammogra m - [facility]. There are scattered fibroglandular elements in both breasts. No significant masses, calcifications, or other findings are seen in either breast. There has been no significant interval change. IMPRESSION: NEGATIVE There is no mammographic evidence of malignancy. A 1 year screening mammogram is recommended. This exam was interpreted at Station ID: [id number]. NOTE: For mammograms, a report in lay terms will be sent to the patient. Approximately 15% of breast malignancies will not be visualized mammographically. In the management of a palpable breast mass, a negative mammogram must not discourage biopsy of a clinically suspicious lesion. Electronically Signed By: Benji Castro M.D. ar/penrad:08/29/2021 13:45:47 ACR BI-RADS Category 1: Negative 3341F PARENCHYMAL PATTERN: (A) - The breast(s) demonstrate(s) scattered fibroglandular densities. BI-RADS CATEGORY: (1) - 1 RECOMMENDATION: (ANNUAL) - Recommend routine annual screening mammography. [id number] 1 year screening LATERALITY: (B)
== END 2021-08-29 12:37 | disposition home or self-care (01) ==
LOC: DI.N 12:36
DX: Z12.31 Encounter for screening mammogram for malignant neoplasm of breast (principal); Z80.3 Family history of malignant neoplasm of breast

== ENCOUNTER 2021-10-17 15:35 | Outpatient (CLI) | payer MEDICARE, OTHER ==
--- NOTE | 2021-10-18 08:28 | XRAY Report ---
PROCEDURE: Chest 2 View X-Ray INDICATIONS: SOB TECHNIQUE: 2 view(s) of the chest. COMPARISON: 08/31/2020 FINDINGS: Surgical changes and devices: None. Lungs and pleura: No pleural effusions or pneumothorax. Hyperexpanded lungs. Chronically increased r eticular interstitial and interstitial and airspace markings, slightly increased from comparison stud y. Mediastinum: Mediastinal contours are normal. Heart size is enlarged. Bones and chest wall: No suspicious bony abnormalities. Soft tissues appear unremarkable. IMPRESSION: Findings of COPD with worsening chronic interstitial and airspace opacities suggestive of interstitia l lung disease. Reviewed by: Erich Hobbs MD on 10/18/2021 8:27 AM PST Approved by: Erich Hobbs MD on 10/18/2021 8:27 AM PST Station ID: [id number]
--- NOTE | 2021-10-18 12:55 | XRAY Report ---
PROCEDURE: Hip w/Pelvis 1V RT INDICATIONS: R HIP PX TECHNIQUE: AP pelvis with lateral view of the right hip. COMPARISON: None. FINDINGS: Bones: No fractures or dislocations. Pelvic ring appears intact. There is mild axial joint space na rrowing in the right hip with minimal collar osteophytosis. Mild axial joint space narrowing also dem onstrated in the left hip. The visualized lower lumbar spine demonstrates facet arthropathy and degen erative disc disease. No suspicious bony lesions. Soft tissues: The visualized bowel gas pattern is normal. No suspicious soft tissue calcifications. IMPRESSION: 1. Mild osteoarthritic changes in the hips. Reviewed by: Franki Johnson MD on 10/18/2021 12:53 PM PST Approved by: Franki Johnson MD on 10/18/2021 12:53 PM PST Station ID: [id number]
== END 2021-10-17 15:36 | disposition home or self-care (01) ==
LOC: DI.N 15:35
PROVIDERS: ATTEND Family Medicine
DX: M16.0 Bilateral primary osteoarthritis of hip (principal); J44.9 Chronic obstructive pulmonary disease, unspecified; J84.9 Interstitial pulmonary disease, unspecified; R06.02 Shortness of breath; R07.2 Precordial pain
CPT/HCPCS: 36415; 85025; 85379

== ENCOUNTER 2021-10-17 15:42 | Outpatient (CLI) | payer MEDICARE, OTHER ==
[2021-10-17 18:01] LABS: BASOPHILS # (AUTO) 0.1 10^3/uL (0.0-0.1); BASOPHILS % (AUTO) 0.8 %; EOSINOPHILS # (AUTO) 0.4 10^3/uL (0.0-0.7); EOSINOPHILS % (AUTO) 5.1 %; HCT - HEMATOCRIT 25.6 % (37.0-47.0); HGB - HEMOGLOBIN 7.4 g/dL (12.0-16.0); LYMPHOCYTES # (AUTO) 2.7 10^3/uL (1.5-3.5); LYMPHOCYTES % (AUTO) 32.7 %; MEAN CORPUSCULAR HEMOGLOBIN 22.9 pg (27.0-31.0); MEAN CORPUSCULAR HGB CONC 28.9 g/dL (32.0-36.0); MEAN CORPUSCULAR VOLUME 79.3 fL (81.0-99.0); MEAN PLATELET VOLUME 10.2 fL (7.9-10.8); MONOCYTES # (AUTO) 0.6 10^3/uL (0.0-1.0); MONOCYTES % (AUTO) 7.6 %; NEUTROPHILS # (AUTO) 4.4 10^3/uL (1.5-6.6); NEUTROPHILS % (AUTO) 53.3 %; PLT - PLATELET COUNT 304 10^3/uL (130-450); RED BLOOD COUNT 3.23 10^6/uL (4.20-5.40); RED CELL DISTRIBUTION WIDTH 14.6 % (12.0-15.0); WHITE BLOOD COUNT 8.3 x10^3/uL (4.8-10.8)
== END 2021-10-17 15:43 | disposition home or self-care (01) ==
LOC: LAB.N 15:42
PROVIDERS: ATTEND Nurse Practitioner Family
DX: R06.02 Shortness of breath (principal); R07.2 Precordial pain
CPT/HCPCS: 36415; 85025; 85379

== ENCOUNTER 2021-10-19 13:05 | Outpatient (CLI) | payer MEDICARE, OTHER ==
[2021-10-19 18:24] LABS: % IRON SATURATION 3 % (20-50); IRON 17 ug/dL (28-170); TOTAL IRON BINDING CAPACITY 494 ug/dL (250-450); TRANSFERRIN 353 mg/dL (192-382)
== END 2021-10-19 13:06 | disposition home or self-care (01) ==
LOC: LAB.N 13:05
PROVIDERS: ATTEND Nurse Practitioner Family
DX: D64.9 Anemia, unspecified (principal); R06.02 Shortness of breath
CPT/HCPCS: 36415; 82728; 83540; 84466

== ENCOUNTER 2021-10-23 11:09 | Outpatient (CLI) | payer MEDICARE, OTHER | END 2021-10-23 11:10 | disposition home or self-care (01) | LOC: LAB 11:09 | PROVIDERS: ATTEND Family Medicine | DX: Z20.822 Contact with and (suspected) exposure to COVID-19 (principal) ==

== ENCOUNTER 2021-11-06 06:30 | Day surgery (SDC) | payer MEDICARE, OTHER ==
[2021-11-06] MEDS ORDERED: LACTATED RINGERS 1,000 ML IV ONE ×2 (06:37→09:02)
[2021-11-06] MEDS ORDERED: PROPOFOL 500 MG/50 ML 500 MG/50 ML VIAL ONE (07:29)
[2021-11-06] MEDS ORDERED: LIDOCAINE-MPF 2% 5 ML VIAL ONE (07:29)
--- NOTE | 2021-11-06 07:30 | ANESTHESIA ---
Pre-Anesthesia VS, & Labs - Diagnosis tary stools, anemia - Procedure egd/cscope Vital Signs: Temp Pulse Resp BP Pulse Ox 36.2 C L 62 18 100/57 L 99 11/06/21 06:45 11/06/21 06:45 11/06/21 06:45 11/06/21 06:45 11/06/21 06:45 Height: 5 ft 2 in Weight (kg): 80 kg Body Mass Index: 32.2 BMI Classification: Obese - NPO >8 hours - Is Patient ?: No - Lab Results Lab results reviewed: Yes Home Medications and Allergies Estrogen,Pily/Me-Testosterone [Covaryx H.s. Tablet] 0.5 tab PO Q48H 10/29/18 Levothyroxine [Synthroid] 50 mcg PO QDAC 10/29/18 Allergies/Adverse Reactions: Allergies Allergy/AdvReac Type Severity Reaction Status Date / Time No Known Drug Allergies Allergy Verified 11/03/21 16:15 Anes History & Medical History - Anesthetic History Anesthesia Complications: reports: No previous complications Family history of Anesthesia Complications: Denies Family history of Malignant Hyperthermia: Denies - Medical History Cardiovascular: reports: None Pulmonary: reports: Asthma, Other Urinary: reports: Incontinence Musculoskeletal: reports: Osteoarthritis Endocrine/Autoimmune: reports: None Smoking Status: Never smoker - Surgical History Urologic: reports: Bladder surgery Gynecologic: reports: Hysterectomy Orthopedic: reports: Knee replacement, Other Exam General: Alert, Oriented x3, Cooperative Dental: Dentures full Upper, Dentures full Lower Mouth Openin Fingerbreadth Neck Mobility: Normal Mallampati classification: II Thyromental Distance: 4-6 cm Respiratory: Lungs clear, Normal breath sounds, Decreased breath sounds Cardiovascular: Regular rate Neurological: Normal speech Mental/Cognitive Status: Alert/Oriented X3, Normal for patient Plan Anesthesia Type: Total IV Consent for Procedure(s) Verified and Reviewed: Yes Code Status: Attempt Resuscitation ASA classification: 2-Mild systemic disease Is this case an emergency?: No
[2021-11-06] MEDS ORDERED: PROPOFOL 200 MG/20 ML VIAL IVP ONE (08:53)
[2021-11-06 09:43] VITALS: BP 142/66
--- NOTE | 2021-11-06 09:45 | ANESTHESIA POST OP EVALUATION ---
Anesthesia Post Eval - Post Anesthesia Eval Vitals: Last Vital Signs Temp 36.6 C 11/06/21 09:26 Pulse 64 11/06/21 09:41 Resp 20 11/06/21 09:41 BP 142/66 H 11/06/21 09:41 Pulse Ox 100 11/06/21 09:41 CV Function Including HR & BP: Stable Pain Control: Satisfactory Nausea & Vomiting: Negative Mental Status: Baseline Respiratory Status: Airway Patent Hydration Status: Satisfactory Anesthesia Complications: None
== END 2021-11-06 06:31 | disposition home or self-care (01) ==
LOC: SDS 06:30
PROVIDERS: ATTEND Surgery
PROC: 0DBH8ZZ Excision of Cecum, Via Natural or Artificial Opening Endoscopic (ICD-10-PCS; 2021-11-06)
PROC: 0DB98ZX Excision of Duodenum, Via Natural or Artificial Opening Endoscopic, Diagnostic (ICD-10-PCS; 2021-11-06)
PROC: 0DB68ZX Excision of Stomach, Via Natural or Artificial Opening Endoscopic, Diagnostic (ICD-10-PCS; 2021-11-06)
PROC: 0DB58ZX Excision of Esophagus, Via Natural or Artificial Opening Endoscopic, Diagnostic (ICD-10-PCS; 2021-11-06)
PROC: 0DB48ZX Excision of Esophagogastric Junction, Via Natural or Artificial Opening Endoscopic, Diagnostic (ICD-10-PCS; 2021-11-06)
PROC: 0DBK8ZZ Excision of Ascending Colon, Via Natural or Artificial Opening Endoscopic (ICD-10-PCS; principal; 2021-11-06 07:30)
PROC: 0DBM8ZZ Excision of Descending Colon, Via Natural or Artificial Opening Endoscopic (ICD-10-PCS; 2021-11-06 07:30)
DX: D50.9 Iron deficiency anemia, unspecified (principal); K92.1 Melena; K29.50 Unspecified chronic gastritis without bleeding; D12.0 Benign neoplasm of cecum; D12.2 Benign neoplasm of ascending colon; D12.4 Benign neoplasm of descending colon; K57.30 Diverticulosis of large intestine without perforation or abscess without bleeding; K64.8 Other hemorrhoids; E66.9 Obesity, unspecified; Z68.32 Body mass index [BMI] 32.0-32.9, adult; J84.112 Idiopathic pulmonary fibrosis
CPT/HCPCS: 43239; 45380; J7120

== ENCOUNTER 2022-03-22 12:40 | Outpatient (CLI) | payer MEDICARE, OTHER ==
--- NOTE | 2022-03-22 14:30 | XRAY Report ---
PROCEDURE: Lumbar Spine 2 View INDICATIONS: LUNBAGO WITH SCIATICA TECHNIQUE: 2 views of the lumbar spine were acquired. COMPARISON: None. FINDINGS: Bones: 5 dld-eie-flcdewp vertebrae are present. Generalized osteopenia. There is grade 1 anterolisth esis of of L3 on L4 measuring 5 mm and grade 1 anterolisthesis of L4 on L5 measuring 7 mm. No vertebr al body compression fractures. No suspicious bony lesions. Multilevel disc space narrowing and degen erative endplate changes as well as facet hypertrophy are seen throughout the lumbar spine, worst at the L4-5 and L5-S1 levels. Soft tissues: Overlying bowel gas pattern is normal. No suspicious soft tissue calcifications. IMPRESSION: 1.Moderate multilevel spondylosis. 2.Degenerative grade 1 anterolisthesis of L3 on L4 and L4 on L5. Reviewed by: Benji Castro MD on 03/22/2022 2:29 PM PDT Approved by: Benji Castro MD on 03/22/2022 2:29 PM PDT Station ID: [id number]
== END 2022-03-22 12:41 | disposition home or self-care (01) ==
LOC: DI 12:40
PROVIDERS: ATTEND Nurse Practitioner Family
DX: M47.816 Spondylosis without myelopathy or radiculopathy, lumbar region (principal); M47.817 Spondylosis without myelopathy or radiculopathy, lumbosacral region; M43.16 Spondylolisthesis, lumbar region

== ENCOUNTER 2022-07-13 08:57 | Emergency (ER) | payer MEDICARE, OTHER ==
[2022-07-13] MEDS ORDERED: SODIUM CHLORIDE 0.9% 1,000 ML IV STA (09:27)
--- NOTE | 2022-07-13 09:28 | ED Physician Documentation ---
PD HPI DYSPNEA - Stated complaint Stated Complaint: SOA/BACK PX - Chief complaint Chief Complaint: Resp - History obtained from History obtained from: Patient, EMS - Additional information Additional information: This is a haley 81-year-old with history of pulmonary fibrosis who sees Dr. Mahajan, rib matcher and fitter in [place]. She used to be an avid marathoner. Couple of months ago she suffered a fall and had multiple right-sided rib fractures and was sent to [facility]. She healed up well from that. Over the last week and a half or so she has a productive cough with pain that started on the right upper back but now is severe in the left upper back. She tried an oxycodone and that sedated her, but did not seem to improve things much and then she notes increased sedation and secretions after the oxycodone. The pain is severe and does respond to an occasional ibuprofen which she does not want to take too much of because of gastric side effects. She denies pedal edema or fevers. Review of Systems Ten Systems: 10 systems reviewed and negative Constitutional: denies: Fever, Chills Cardiac: denies: Chest pain / pressure, Palpitations Respiratory: reports: Dyspnea, Cough PD PAST MEDICAL HISTORY - Past Medical History Cardiovascular: None Respiratory: Asthma, Other Endocrine/Autoimmune: None : Incontinence HEENT: Chronic vision loss, Chronic hearing loss Musculoskeletal: Osteoarthritis - Past Surgical History Ortho: Knee replacement, Other /INFECTIOUS DISEASE TECHNICIAN: Hysterectomy - Present Medications Home Medications: Ambulatory Orders Medication Instructions Recorded Confirmed Albuterol Sulf [Ventolin Hfa 1 - 2 puffs INH Q4HR PRN #1 inhaler 10/27/18 11/06/21 Inhaler] Estrogen,Pily/Me-Testosterone 0.5 tab PO Q48H 10/29/18 11/06/21 [Covaryx H.s. Tablet] Levothyroxine [Synthroid] 50 mcg PO QDAC 10/29/18 07/13/22 Oxybutynin [Ditropan] 5 mg PO BID PRN tablet 11/01/18 07/13/22 guaiFENesin [Mucinex] 600 mg PO BID #14 tablet 11/01/18 11/06/21 Celecoxib [Celebrex] 0 mg PO 07/13/22 HYDROcod/ACETAM 5/325 [Dixon 5/325] 0 tab PO PRN PRN 07/13/22 07/13/22 Pantoprazole [Protonix] 40 mg PO DAILY 07/13/22 07/13/22 Tramadol HCl 100 mg PO DAILY 07/13/22 07/13/22 levoFLOXacin [Levofloxacin] 750 mg PO DAILY #6 tablet 07/13/22 oxyCODONE [Roxicodone] 0 mg PO ONCE 07/13/22 07/13/22 - Allergies Allergies/Adverse Reactions: Allergies Allergy/AdvReac Type Severity Reaction Status Date / Time No Known Drug Allergies Allergy Verified 04/12/22 13:25 - Social History Does the pt smoke?: No Smoking Status: Never smoker - Immunizations Immunizations are current?: Yes PD ED PE NORMAL - Vitals Vital signs reviewed: Yes - General General: Alert and oriented X 3, Other (She appears breathless, and in some pain especially after coughing or deep breathing.) - HEENT HEENT: PERRL, EOMI - Neck Neck: Supple, no meningeal sign, No bony TTP - Cardiac Cardiac: RRR, No murmur - Respiratory Respiratory: Other (Posteriorly her lungs are clear, but she does have crackles on the left anterior pulmonary exam.) - Abdomen Abdomen: Non tender - Derm Derm: No rash - Extremities Extremities: No edema, No calf tenderness / cord - Neuro Neuro: Alert and oriented X 3, Normal speech Results - Vitals Vitals: Vital Signs - 24 hr 07/13/22 07/13/22 07/13/22 09:07 09:30 10:30 Temperature 36.6 C Heart Rate 77 66 68 Respiratory 20 32 H 21 Rate Blood Pressure 114/63 130/65 130/64 O2 Saturation 100 100 100 If not protocol 2 2 : Oxygen Flow, liters/minute 07/13/22 07/13/22 07/13/22 11:23 11:49 13:00 Temperature Heart Rate 69 74 Respiratory 22 24 20 Rate Blood Pressure 136/80 H 145/96 H O2 Saturation 98 99 If not protocol 2 2 2 : Oxygen Flow, liters/minute 07/13/22 07/13/22 15:00 17:02 Temperature Heart Rate 65 71 Respiratory 27 H 34 H Rate Blood Pressure 126/93 H 145/56 H O2 Saturation 100 97 If not protocol 2 2 : Oxygen Flow, liters/minute Oxygen O2 Source Nasal cannula Oxygen Flow Rate 2 - Labs Labs: Laboratory Tests 07/13/22 07/13/22 07/13/22 09:44 09:46 09:46 WBC 10.7 RBC 5.03 Hgb 13.8 Hct 45.0 MCV 89.5 MCH 27.4 MCHC 30.7 L RDW 19.0 H Plt Count 243 MPV 10.7 Neut # (Auto) 8.0 H Lymph # (Auto) 1.3 L Forsy[place] # (Auto) 0.8 Eos # (Auto) 0.5 Baso # (Auto) 0.1 Absolute Nucleated RBC 0.00 Nucleated RBC % 0.0 VBG pH 7.349 VBG pCO2 57.3 H VBG pO2 43.8 VBG HCO3 30.9 H VBG Total CO2 32.6 H VBG O2 Saturation 79.4 VBG Base Excess 3.6 H Sodium Potassium Chloride Carbon Dioxide Anion Gap BUN Creatinine Estimated GFR (MDRD) Glucose Lactic Acid Calcium Total Bilirubin AST ALT Alkaline Phosphatase B-Natriuretic Peptide 33 Total Protein Albumin Globulin Albumin/Globulin Ratio Nasal Adenovirus (PCR) Nasal B. parapertussis DNA (PCR) Nasal Coronavir 229E PCR Nasal Coronavir HKU1 PCR Nasal Coronavir NL63 PCR Nasal Coronavir OC43 PCR Nasal Enterovir/Rhinovir PCR Nasal Influenza B PCR Nasal Influenza A PCR Nasal Parainfluen 1 PCR Nasal Parainfluen 2 PCR Nasal Parainfluen 3 PCR Nasal Parainfluen 4 PCR Nasal RSV (PCR) Nasal B.pertussis DNA PCR Nasal C.pneumoniae (PCR) Marco Human Metapneumo PCR Nasal M.pneumoniae (PCR) Nasal SARS-CoV-2 (PCR) 07/13/22 07/13/22 07/13/22 09:46 10:15 11:40 WBC RBC Hgb Hct MCV MCH MCHC RDW Plt Count MPV Neut # (Auto) Lymph # (Auto) Forsy[place] # (Auto) Eos # (Auto) Baso # (Auto) Absolute Nucleated RBC Nucleated RBC % VBG pH VBG pCO2 VBG pO2 VBG HCO3 VBG Total CO2 VBG O2 Saturation VBG Base Excess Sodium 134 L Potassium 4.0 Chloride 96 L Carbon Dioxide 28 Anion Gap 10.0 BUN 17 Creatinine 0.7 Estimated GFR (MDRD) 81 L Glucose 106 H Lactic Acid 0.8 Calcium 8.7 Total Bilirubin 0.6 AST 25 ALT 18 Alkaline Phosphatase 141 H B-Natriuretic Peptide Total Protein 7.4 Albumin 3.6 Globulin 3.8 Albumin/Globulin Ratio 0.9 L Nasal Adenovirus (PCR) NOT DETECTED Nasal B. parapertussis DNA (PCR) NOT DETECTED Nasal Coronavir 229E PCR NOT DETECTED Nasal Coronavir HKU1 PCR NOT DETECTED Nasal Coronavir NL63 PCR NOT DETECTED Nasal Coronavir OC43 PCR NOT DETECTED Nasal Enterovir/Rhinovir PCR NOT DETECTED Nasal Influenza B PCR NOT DETECTED Nasal Influenza A PCR NOT DETECTED Nasal Parainfluen 1 PCR NOT DETECTED Nasal Parainfluen 2 PCR NOT DETECTED Nasal Parainfluen 3 PCR NOT DETECTED Nasal Parainfluen 4 PCR NOT DETECTED Nasal RSV (PCR) NOT DETECTED Nasal B.pertussis DNA PCR NOT DETECTED Nasal C.pneumoniae (PCR) NOT DETECTED Marco Human Metapneumo PCR NOT DETECTED Nasal M.pneumoniae (PCR) NOT DETECTED Nasal SARS-CoV-2 (PCR) NOT DETECTED - Rads (name of study) 1v cxr Radiology: Prelim report reviewed, EMP read contemporaneously (Single view chest x-ray demonstrates bilateral opacities concerning for pneumonia versus pulmonary edema with superimposed interstitial lung disease) PD MEDICAL DECISION MAKING - ED course ED course: This is a haley 81-year-old woman with history of interstitial lung disease who presents with worse back pain over the last few days and a productive cough with increased secretions. Work-up here demonstrates probably bibasilar pneumonia, but relatively unremarkable labs with normal BNP and negative bio fire respiratory panel. She was cultured up and given Rocephin and Zithromax. She very much wanted to stay in the hospital and I had a long discussion with her and her caregiver at the bedside. Given the otherwise unremarkable diagnostics there is some concern that she may not necessarily fit criteria for admission and we asked her to sign an ABN. She declined to sign the ABN until she spoke with the hospitalist and I spoke with Dr. Evans who will come and see the patient, we spoke at approximately 12:35 PM. She wanted More of an explanation about her back pain and a CT angiography was done without pertinent positive findings except what we already knew, pneumonia, healing rib fractures, hiatal hernia etc. She was feeling much better about her pulmonary status at that time and wanted to be discharged. Departure - Departure Disposition: 01 Home, Self Care Clinical Impression: Pneumonia Qualifiers: Pneumonia type: due to unspecified organism Laterality: bilateral Lung location: lower lobe of lung Qualified Code(s): J18.9 - Pneumonia, unspecified organism Condition: Stable Record reviewed to determine appropriate education?: Yes Instructions: Pneumonia Dc Prescriptions: levoFLOXacin [Levofloxacin] 750 mg PO DAILY #6 tablet Comments: I sent your prescription electronically to [facility] in [place]. Reasonable to follow-up with your rib matcher and fitter early next week, return for new or worsening symptoms
[2022-07-13 10:00] LABS: VBG HCO3 30.9 mmol/L (23-28); VBG PCO2 57.3 mmHg (41-51); VBG PH 7.349 (7.31-7.41); VBG PO2 43.8 mmHg (25-47); VBG TOTAL CO2 32.6 mmol/L (24-29)
[2022-07-13 10:01] LABS: BASOPHILS # (AUTO) 0.1 10^3/uL (0.0-0.1); BASOPHILS % (AUTO) 0.7 %; EOSINOPHILS # (AUTO) 0.5 10^3/uL (0.0-0.7); EOSINOPHILS % (AUTO) 4.9 %; HGB - HEMOGLOBIN 13.8 g/dL (12.0-16.0); LYMPHOCYTES # (AUTO) 1.3 10^3/uL (1.5-3.5); LYMPHOCYTES % (AUTO) 11.8 %; MEAN CORPUSCULAR HEMOGLOBIN 27.4 pg (27.0-31.0); MEAN CORPUSCULAR HGB CONC 30.7 g/dL (32.0-36.0); MEAN CORPUSCULAR VOLUME 89.5 fL (81.0-99.0); MEAN PLATELET VOLUME 10.7 fL (7.9-10.8); MONOCYTES # (AUTO) 0.8 10^3/uL (0.0-1.0); MONOCYTES % (AUTO) 7.4 %; NEUTROPHILS % (AUTO) 74.9 %; PLT - PLATELET COUNT 243 10^3/uL (130-450); RED BLOOD COUNT 5.03 10^6/uL (4.20-5.40); VBG BASE EXCESS 3.6 mmol/L (-2 - +2); VBG OXYGEN SATURATION 79.4 % (60-80); WHITE BLOOD COUNT 10.7 x10^3/uL (4.8-10.8)
--- NOTE | 2022-07-13 10:09 | XRAY Report ---
PROCEDURE: Chest 1 View X-Ray INDICATIONS: cough TECHNIQUE: One view of the chest was acquired. COMPARISON: Chest CT without, 04/12/2022. Chest x-ray, 10/17/2021. FINDINGS: Surgical changes and devices: None. Lungs and pleura: No pleural effusions or pneumothorax. Bilateral interstitial and airspace infiltra sowmya increased compared to the chest x-ray, compatible with bilateral pneumonia or pulmonary edema. Mediastinum: Mediastinal contours appear normal. Heart size is mildly increased. Bones and chest wall: Left shoulder arthroplasty. No suspicious bony lesions. Overlying soft tissue s appear unremarkable. IMPRESSION: 1. Increased bilateral interstitial and airspace opacification, suspicious for pneumonia or pulmonary edema. 2. Superimposed interstitial lung disease may be present. Reviewed by: Kwame Dobbins MD on 07/13/2022 10:07 AM [facility] Approved by: Kwame Dobbins MD on 07/13/2022 10:07 AM [facility] Station ID: [id number]
[2022-07-13 10:38] LABS: ALBUMIN 3.6 g/dL (3.2-5.5); ALBUMIN/GLOBULIN RATIO 0.9 (1.0-2.2); BILIRUBIN,TOTAL 0.6 mg/dL (0.2-1.0); CALCIUM 8.7 mg/dL (8.5-10.3); CREATININE 0.7 mg/dL (0.4-1.0); TOTAL PROTEIN 7.4 g/dL (6.7-8.2)
[2022-07-13 10:47] LABS: B. PARAPERTUSSIS- RESP PCR PAN NOT DETECTED; B. PERTUSSIS- RESP PCR PANEL NOT DETECTED; C. PNEUMONIAE- RESP PCR PANEL NOT DETECTED; CORONAVIRUS 229E-RESP PCR NOT DETECTED; CORONAVIRUS HKU1-RESP PCR NOT DETECTED; CORONAVIRUS NL63-RESP PCR NOT DETECTED; CORONAVIRUS OC43-RESP PCR NOT DETECTED; HUMAN METAPNEUMOVIRUS NOT DETECTED; INFLUENZA A- RESP PCR PANEL NOT DETECTED; INFLUENZA B - RESP PCR PANEL NOT DETECTED; M. PNEUMONIAE- RESP PCR PANEL NOT DETECTED; PARAINFLUENZA VIRUS 1 NOT DETECTED; PARAINFLUENZA VIRUS 2 NOT DETECTED; PARAINFLUENZA VIRUS 3 NOT DETECTED; PARAINFLUENZA VIRUS 4 NOT DETECTED; RHINOVIRUS/ENTEROVIRUS NOT DETECTED; RSV- RESP PCR PANEL NOT DETECTED; SARS-CoV-2 -RESP PCR PANEL NOT DETECTED
[2022-07-13] MEDS ORDERED: KETOROLAC 15 MG/ML VIAL IVP STA (11:08)
[2022-07-13] MEDS ORDERED: AZITHROMYCIN INJ 500 MG in SODIUM CHLORIDE 0.9% 250 ML IV STA (11:21)
[2022-07-13] MEDS ORDERED: IPRATROPIUM/ALBUTEROL 3 ML NEB INH STA (11:21)
[2022-07-13] MEDS ORDERED: cefTRIAXone 1 GM in SODIUM CHLORIDE 0.9% MINIBAG 100 ML IV STA (11:21)
[2022-07-13] MEDS ORDERED: iohexoL-300 100 ML VIAL ONE (13:21)
[2022-07-13] MEDS ORDERED: iohexoL-300 100 ML VIAL IVP ONE (15:08)
--- NOTE | 2022-07-13 17:26 | CT Report ---
PROCEDURE: ANGIO CHEST W/WO INDICATIONS: back pain, pe prtocol CONTRAST: 80ml omni 300 TECHNIQUE: After the administration of intravenous contrast, 2 mm axial images were acquired from the pulmonary apices to the posterior costophrenic angles during the arterial phase. In addition, 1 mm lung kernel and 5 mm soft tissue kernel reconstructions were performed. 3-dimensional coronal oblique maximum int ensity projection (MIP) reformats, 8 mm axial MIP, and 5 mm coronal and sagittal MPR reformats were t hen performed through the thorax. For radiation dose reduction, the following was used: automated exp osure control, adjustment of mA and/or kV according to patient size. COMPARISON: CT chest dated 04/12/2022 and chest radiograph from earlier same day FINDINGS: Image quality: Study degraded by moderate patient motion artifact. The pulmonary arteries are not wel l visualized beyond the proximal segmental pulmonary arteries. Pulmonary arteries: No intraluminal filling defects to suggest acute central pulmonary embolism. No d efinite acute pulmonary emboli noted to the level of the proximal segmental pulmonary arteries. No ev idence for acute right-sided heart strain. Main pulmonary artery is not dilated. Lungs and pleura: Redemonstration of pronounced irregular reticular and groundglass opacities scatter ed throughout the bilateral hemithoraces. There is associated bronchiectasis predominantly in the upp er lobes bilaterally and more severe on the right. No interval development of new acute airspace opac ities although study is limited by moderate respiratory motion artifact. Scattered scarring is again noted bilaterally. No definite honeycombing/fibrosis identified. Previously seen mosaic attenuation n ot appreciated, likely related to motion artifact. No substantial pleural effusions or pneumothorax. Central and peripheral airways are patent. Mediastinum: Heart size is enlarged, without pericardial effusion. Redemonstration of multiple scatt ered mediastinal lymph nodes that are moderate in size. Thoracic aorta is normal in caliber and enhan cement. Scattered atherosclerotic calcifications as before. Esophagus is normal in caliber, with mode rate sized hiatal hernia. Bones and chest wall: No suspicious bony lesions. Redemonstration of multiple subacute right-sided rib fractures. No acute compression fractures of the imaged spine. Multilevel thoracic spondylosis. R edemonstration of left shoulder arthroplasty. No axillary or supraclavicular adenopathy. The thyroid is normal in size and there are no incidental findings. Abdomen: Visualized upper abdominal solid organs appear normal in the early arterial phase of enhanc ement. IMPRESSION: 1. Study limited by significant patient respiratory motion artifact. No acute pulmonary emboli visual ized to the proximal segmental pulmonary arterial level. No central filling defects identified. No ev idence for acute right-sided heart strain. 2. Mild cardiomegaly. 3. Redemonstration of previously described scattered bilateral irregular reticular and groundglass op acities with associated scarring and bronchiectasis. No definite new focal airspace disease identifie d although not completely excluded given moderate respiratory motion artifact. Overall, findings are favored to be stable and likely represent chronic interstitial lung disease. If not a radially accomp lished, recommend pulmonary consultation as well as possible outpatient high resolution chest CT afte r resolution of acute findings. 4. Redemonstration of multiple subacute minimally displaced right rib fractures. No pneumothorax seen . 5. Atherosclerotic vascular disease. 6. Moderate size hiatal hernia, stable. 7. Multilevel thoracic spondylosis. No acute compression fractures. CLINICAL RECOMMENDATION STATEMENTS: In patients <35 years with an ITN detected on CT, MRI, or extrathyroidal ultrasound, the Committee re commends further evaluation with dedicated thyroid ultrasound if the nodule is "e1 cm and has no susp icious imaging features, and if the patient has normal life expectancy. In patients "e35 years with an ITN detected on CT, MRI, or extrathyroidal ultrasound, the Committee r ecommends further evaluation with dedicated thyroid ultrasound if the nodule is "e1.5 cm and has no s uspicious imaging features, and if the patient has normal life expectancy. (ACR, 2014) Reviewed by: Perry Grimes MD on 07/13/2022 5:24 PM PST Approved by: Perry Grimes MD on 07/13/2022 5:24 PM PST Station ID: [id number]
[2022-07-13 18:10] VITALS: BP 149/63
== END 2022-07-13 18:09 | disposition home or self-care (01) ==
LOC: ED 08:57
DX: J18.9 Pneumonia, unspecified organism (principal); Z20.822 Contact with and (suspected) exposure to COVID-19
CPT/HCPCS: 36415; 71045; 71275; 80053; 82803; 83605; 83880; 85025; 87040; 87633; 94640; 94664; 96361; 96365; 96366; 96368; 96375; 99284; Q9967